=== PATIENT | female | born 1945 | race Caucasian/White ===

== ENCOUNTER 2017-12-28 12:42 | Emergency (ER) | payer MEDICARE, OTHER ==
[~2017-12-28] VITALS: Ht 160 cm; Wt 137.3 kg
[~2017-12-28 12:42] MED LIST: ALBU18HF2 INH; BUPR150T6 PO; BUPR75TA11 PO; CIPR-230 PO; CITA10TA9 PO; DOCU100C41 PO; ENOX30SY10 SUBCUT; ENOX40SY7 SQ; FAMO40TA PO; HYDR-3972 PO; HYDR-565 PO; LEVO112T5 PO; MAGN400C PO; MULT-1133 PO; PHEN-557 PO; POLY17PO10 PO; PREG75CA30 PO; VALS80TA2 PO; VITA200C68 PO; VITC500T PO; WARF10TA50 PO; [UNRECOGNIZED DRUG - CODE] PO
[2017-12-28 12:52] VITALS: BP 157/82
[2017-12-28] MEDS ORDERED: HYDR-3972 PO (13:41)
== END 2017-12-28 14:14 | disposition home or self-care (01) ==
LOC: VAS 12:42
DX: G89.29 Other chronic pain (principal); M54.9 Dorsalgia, unspecified; Z76.0 Encounter for issue of repeat prescription; I12.9 Hypertensive chronic kidney disease with stage 1 through stage 4 chronic kidney disease, or unspecified chronic kidney disease; E11.22 Type 2 diabetes mellitus with diabetic chronic kidney disease; N18.9 Chronic kidney disease, unspecified; E78.00 Pure hypercholesterolemia, unspecified; J44.9 Chronic obstructive pulmonary disease, unspecified; K21.9 Gastro-esophageal reflux disease without esophagitis; E05.90 Thyrotoxicosis, unspecified without thyrotoxic crisis or storm; Z86.718 Personal history of other venous thrombosis and embolism; Z90.710 Acquired absence of both cervix and uterus; Z98.51 Tubal ligation status; Z88.8 Allergy status to other drugs, medicaments and biological substances
CPT/HCPCS: 99283

== ENCOUNTER 2018-01-07 12:58 | Emergency (ER) | payer MEDICARE, MEDICAID ==
[~2018-01-07] VITALS: Ht 157.5 cm; Wt 137.3 kg
[2018-01-07 13:01] VITALS: BP 165/72
[2018-01-07] MEDS ORDERED: HYDROcodone/acetaminophen 10/325mg tab PO ONE (13:40)
== END 2018-01-07 14:07 | disposition home or self-care (01) ==
LOC: ER 12:58
DX: G89.29 Other chronic pain (principal); M54.5 Low back pain; E78.00 Pure hypercholesterolemia, unspecified; J44.9 Chronic obstructive pulmonary disease, unspecified; K21.9 Gastro-esophageal reflux disease without esophagitis; E11.22 Type 2 diabetes mellitus with diabetic chronic kidney disease; I12.9 Hypertensive chronic kidney disease with stage 1 through stage 4 chronic kidney disease, or unspecified chronic kidney disease; N18.9 Chronic kidney disease, unspecified; E05.90 Thyrotoxicosis, unspecified without thyrotoxic crisis or storm; Z79.01 Long term (current) use of anticoagulants; Z88.8 Allergy status to other drugs, medicaments and biological substances; Z90.710 Acquired absence of both cervix and uterus; Z90.89 Acquired absence of other organs; Z98.51 Tubal ligation status
CPT/HCPCS: 99284

== ENCOUNTER 2018-02-11 13:49 | Emergency (ER) | payer MEDICARE, MEDICAID ==
[~2018-02-11] VITALS: Ht 160 cm; Wt 137.3 kg
[~2018-02-11 13:49] MED LIST changes: +HYDR-4353 PO; -HYDR-565 PO
[2018-02-11] MEDS ORDERED: acetaminophen 325mg tablet PO ONE (15:10)
[2018-02-11] MEDS ORDERED: orphenadrine citrate 60mg/2ml inj. IM ONE (15:10)
[2018-02-11 15:44] LABS: BASOPHILS % (AUTO) 0.8 % (0-1); EOSINOPHILS # (AUTO) 0.2 X10'3 (0-0.9); EOSINOPHILS % (AUTO) 3.3 % (0-6); HEMATOCRIT 39.6 % (35.0-45.0); HEMOGLOBIN 13.3 g/dl (12.0-16.0); LYMPHOCYTES # (AUTO) 1.6 X10'3 (1.1-4.8); LYMPHOCYTES % (AUTO) 33.7 % (21-51); MEAN CORPUSCULAR HEMOGLOBIN 33.4 PG (27.0-31.0); MEAN CORPUSCULAR HGB CONC 33.6 % (33.0-36.5); MEAN CORPUSCULAR VOLUME 99.4 FL (78-98); MEAN PLATELET VOLUME 8.1 FL (7.4-10.4); MONOCYTES # (AUTO) 0.6 X10'3 (0-0.9); MONOCYTES % (AUTO) 12.2 % (2-12); NEUTROPHILS # (AUTO) 2.4 X10'3 (1.8-7.7); PLATELET COUNT 200 X10'3 (140-440); RED BLOOD COUNT 3.99 X10'6 (4.20-5.60); RED CELL DISTRIBUTION WIDTH 15.5 % (11.5-14.5); WHITE BLOOD COUNT 4.7 X10'3 (4.5-11.0)
[2018-02-11 15:52] LABS: CLARITY,URINE SLIGHTLY CLOUDY (Clear); COLOR,URINE YELLOW (Yellow); GLUCOSE, URINE NEGATIVE (Neg); KETONES,URINE NEGATIVE (Neg); LEUKOCYTE ESTERASE ,URINE SMALL (Neg); NITRITES, URINE POSITIVE (Neg); OCCULT BLOOD,URINE NEGATIVE (Neg); PROTEIN,URINE NEGATIVE (Neg); UROBILINOGEN,URINE 0.2 E.U/dL (0.2-1.0)
[2018-02-11 15:53] LABS: UA COLLECTION TYPE CLN CATCH MIDSTREAM
[2018-02-11 16:00] LABS: BACTERIA,URINE 4+ /HPF (Neg); RBC,URINE NONE SEEN /HPF (0-2); SQUAMOUS EPITHELIAL CELL,UR FEW /LPF (FEW); WBC,URINE 50-100 /HPF (0-4)
[2018-02-11 16:00] LABS: ALANINE AMINOTRANSFERASE 32 U/L (12-78); ALBUMIN 3.4 G/DL (3.4-5.0); ALBUMIN/GLOBULIN RATIO 0.8 (1.1-1.5); ALKALINE PHOSPHATASE 138 IU/L (46-116); ANION GAP 9 (8-16); ASPARTATE AMINO TRANSFERASE 22 U/L (10-37); BILIRUBIN,TOTAL 0.2 MG/DL (0.1-1.0); BLOOD UREA NITROGEN 23 MG/DL (7-18); BUN/CREATININE RATIO 17.7 (6.6-38.0); CALCIUM 9.1 MG/DL (8.5-10.1); CHLORIDE 105 MMOL/L (99-107); GLUCOSE 88 MG/DL (70-104); SODIUM 140 MMOL/L (135-145); TOTAL CARBON DIOXIDE 26.5 MMOL/L (24-32); TOTAL PROTEIN 7.8 G/DL (6.4-8.2); eGFR 40 ML/MIN
[2018-02-11 16:01] LABS: WBC CLUMPS,URINE FEW /HPF (NEGATIVE)
[2018-02-11 16:03] LABS: INR 1.6 INR; PROTHROMBIN TIME 16.5 SECONDS (9.0-12.0)
[2018-02-11 17:08] VITALS: BP 155/75
== END 2018-02-11 17:09 | disposition home or self-care (01) ==
LOC: ER 13:49
DX: S29.012A Strain of muscle and tendon of back wall of thorax, initial encounter (principal); M54.5 Low back pain; J45.909 Unspecified asthma, uncomplicated; J44.9 Chronic obstructive pulmonary disease, unspecified; I12.9 Hypertensive chronic kidney disease with stage 1 through stage 4 chronic kidney disease, or unspecified chronic kidney disease; E11.22 Type 2 diabetes mellitus with diabetic chronic kidney disease; N18.9 Chronic kidney disease, unspecified; F41.9 Anxiety disorder, unspecified; F32.9 Major depressive disorder, single episode, unspecified; G89.29 Other chronic pain; K21.9 Gastro-esophageal reflux disease without esophagitis; Z88.8 Allergy status to other drugs, medicaments and biological substances; Z86.718 Personal history of other venous thrombosis and embolism; Z90.710 Acquired absence of both cervix and uterus; Z88.6 Allergy status to analgesic agent; Z79.899 Other long term (current) drug therapy; Z79.01 Long term (current) use of anticoagulants; E78.00 Pure hypercholesterolemia, unspecified; W01.0XXA Fall on same level from slipping, tripping and stumbling without subsequent striking against object, initial encounter; Y93.89 Activity, other specified; Y92.89 Other specified places as the place of occurrence of the external cause; Y99.8 Other external cause status
CPT/HCPCS: 36415; 74176; 80053; 81001; 85025; 85610; 87077; 87088; 87186; 96372; 99285; J2360

== ENCOUNTER 2018-07-18 12:35 | Inpatient (IN) | payer MEDICARE, MEDICAID ==
[~2018-07-18] VITALS: Ht 160 cm; Wt 143.0 kg
[2018-07-18] MEDS ORDERED: normal saline 1000ML IV soln IVB ONE (12:50)
[2018-07-18] MEDS ORDERED: LORazepam 2 mg/ml vial IV ONE (13:00)
[2018-07-18 13:23] LABS: BASOPHILS # (AUTO) 0.1 X10'3 (0-0.2); BASOPHILS % (AUTO) 0.8 % (0-1); EOSINOPHILS % (AUTO) 0.1 % (0-6); HEMATOCRIT 34.6 % (35.0-45.0); HEMOGLOBIN 11.5 g/dl (12.0-16.0); LYMPHOCYTES # (AUTO) 0.6 X10'3 (1.1-4.8); MEAN CORPUSCULAR HEMOGLOBIN 33.2 PG (27.0-31.0); MEAN CORPUSCULAR HGB CONC 33.1 g/dL (33.0-36.5); MEAN CORPUSCULAR VOLUME 100.2 FL (78-98); MONOCYTES # (AUTO) 0.8 X10'3 (0-0.9); MONOCYTES % (AUTO) 7.2 % (2-12); NEUTROPHILS # (AUTO) 9.9 X10'3 (1.8-7.7); NEUTROPHILS % (AUTO) 86.9 % (42-75); PLATELET COUNT 147 X10'3 (140-440); RED BLOOD COUNT 3.45 X10'6 (4.20-5.60); RED CELL DISTRIBUTION WIDTH 14.7 % (11.5-14.5); WHITE BLOOD COUNT 11.4 X10'3 (4.5-11.0)
[2018-07-18 13:39] LABS: ALANINE AMINOTRANSFERASE 35 U/L (12-78); ALBUMIN/GLOBULIN RATIO 0.6 (1.1-1.5); ALKALINE PHOSPHATASE 101 IU/L (46-116); ANION GAP 9 (8-16); ASPARTATE AMINO TRANSFERASE 30 U/L (10-37); BILIRUBIN,TOTAL 0.3 MG/DL (0.1-1.0); BLOOD UREA NITROGEN 32 MG/DL (7-18); BUN/CREATININE RATIO 22.4 (6.6-38.0); CALCIUM 8.3 MG/DL (8.5-10.1); CHLORIDE 106 MMOL/L (99-107); CREATININE 1.43 MG/DL (0.40-0.90); GLUCOSE 100 MG/DL (70-104); MAGNESIUM 1.6 MG/DL (1.5-2.4); POTASSIUM 5.3 MMOL/L (3.5-5.1); SODIUM 141 MMOL/L (135-145); TOTAL CARBON DIOXIDE 26.4 MMOL/L (24-32); TOTAL PROTEIN 7.7 G/DL (6.4-8.2); eGFR 36 ML/MIN
--- NOTE | 2018-07-18 13:49 | NUR ---
1ST LITER NS INFUSING W/O
[2018-07-18 13:53] LABS: INR 3.3 INR; PARTIAL THROMBOPLASTIN TIME 46 SECONDS (22-32)
--- NOTE | 2018-07-18 14:03 | NUR ---
IN AND OUT CATH DONE WITH STERILE TECHNIQUE, PT IS ABLE TO ROLL SIDE TO SIDE WITH MIN ASSIST, PT IS WEARING DEPENDS AND INCONTINENT OF URINE AT TIMES, 800ML OF DARK YELLOW URINE OUT, SAMPLE SENT TO LAB
--- NOTE | 2018-07-18 14:09 | NUR ---
DR CAAL AWARE OF TEMP 104.0, GAVE VERBAL ORDER FOR TYLENON 650MG PO X1 NOW
[2018-07-18] MEDS ORDERED: acetaminophen 325mg tablet PO ONE (14:10)
--- NOTE | 2018-07-18 14:10 | NUR ---
PT MOVED TO ROOM 5
[2018-07-18 14:23] LABS: COLOR,URINE STRAW (Yellow); GLUCOSE, URINE NEGATIVE (Neg); KETONES,URINE NEGATIVE (Neg); LEUKOCYTE ESTERASE ,URINE NEGATIVE (Neg); NITRITES, URINE POSITIVE (Neg); OCCULT BLOOD,URINE TRACE-LYSED (Neg); PROTEIN,URINE NEGATIVE (Neg); UROBILINOGEN,URINE 0.2 E.U/dL (0.2-1.0)
[2018-07-18 14:24] LABS: CLARITY,URINE SLIGHTLY CLOUDY (Clear); UA COLLECTION TYPE FOLEY CATH
[2018-07-18 14:28] LABS: BACTERIA,URINE 4+ /HPF (Neg); MUCUS STRANDS NONE SEEN /LPF (Neg); SQUAMOUS EPITHELIAL CELL,UR FEW /LPF (FEW); WBC CLUMPS,URINE FEW /HPF (NEGATIVE)
[2018-07-18] MEDS ORDERED: CefTRIAXone/D5W-Rocephin 1gm 50 ML IV ONE (14:40)
[2018-07-18] MEDS ORDERED: HYDROmorphone 1 mg/ml syringe IV ONE (14:45)
[2018-07-18] MEDS ORDERED: PRIM50TA42 PO ×2 (16:09→16:12)
[2018-07-18] MEDS ORDERED: LEVO137T2 PO (16:09)
[2018-07-18] MEDS ORDERED: magnesium 4gm in 100ml NS 100 ML IV PRN (16:10)
[2018-07-18] MEDS ORDERED: magnesium 2GM in 50ml NS 50 ML IV PRN (16:10)
[2018-07-18] MEDS ORDERED: docusate sod 100mg capsule PO PRN (16:10)
[2018-07-18] MEDS ORDERED: HYDROcodone/acetaminophen 5mg/325mg tablet PO PRN (16:10)
[2018-07-18] MEDS ORDERED: acetaminophen 325mg tablet PO PRN (16:10)
[2018-07-18] MEDS ORDERED: potassium Cl 20 mEq SR tablet PO PRN ×2 (16:10)
[2018-07-18] MEDS ORDERED: ondansetron/PF 4mg/2ml inj IV PRN (16:10)
[2018-07-18] MEDS ORDERED: magnesium Cl slow-release 64mg tablet PO PRN (16:10)
[2018-07-18] MEDS ORDERED: potassium Cl 40MEQ/NS 500ml 500 ML IV PRN ×2 (16:10)
[2018-07-18] MEDS ORDERED: morphine 4 MG/ML inj SYRINge IV PRN (16:10)
[2018-07-18] MEDS ORDERED: WARF10TA50 PO (16:11)
[2018-07-18] MEDS ORDERED: MIRA50TA PO (16:11)
[2018-07-18] MEDS ORDERED: POTA10TA15 PO (16:16)
[2018-07-18] MEDS ORDERED: CYAN-19 PO (16:16)
[2018-07-18] MEDS ORDERED: FURO-150 PO (16:16)
[2018-07-18] MEDS ORDERED: [UNRECOGNIZED DRUG - OTHER] BOTHNARES (16:16)
[2018-07-18] MEDS ORDERED: FISH12002 PO (16:16)
[2018-07-18] MEDS: normal saline 1000ml 1,000 ML IV SCH (17:08)
[2018-07-18] MEDS: HYDROcodone/acetaminophen 10/325mg tab PO PRN (18:01)
[2018-07-18] MEDS ORDERED: non-formulary drug (Albuterol Sulfate (Ventolin Hfa) 2 PUFFS) INH PRN (19:15)
[2018-07-18] MEDS ORDERED: albuterol 2.5 MG/3 ML nebule NEB PRN (19:20)
--- NOTE | 2018-07-18 19:44 | NUR ---
PT PLACED ON HOSPITAL BED FOR COMFORT
[2018-07-18] MEDS: heparin, porcine 5000 units/ml vial SQ SCH (20:28)
[2018-07-18] MEDS: albuterol 2.5 MG/3 ML nebule NEB SCH ×2 (20:37→23:43)
[2018-07-18] MEDS: primidone 50mg tablet PO SCH (20:43)
[2018-07-18] MEDS ORDERED: [UNRECOGNIZED DRUG - OTHER] BOTHNARES SCH (21:00)
[2018-07-18] MEDS: desmopressin 0.1mg/ml nasal spray 5ml btl NS SCH (21:00)
[2018-07-18] MEDS ORDERED: buPROPion 75mg tablet PO SCH (21:00)
[2018-07-18] MEDS: buPROPion 75mg tablet PO SCH (21:22)
--- NOTE | 2018-07-18 22:24 | NUR ---
PT PLACED ON BED WELCH.
[2018-07-18] MEDS: acetaminophen 325mg tablet PO PRN (22:47)
--- NOTE | 2018-07-18 22:53 | NUR ---
PT TAKEN OFF BEDPAN, APPROX 100 CC URINE OUTPUT
--- NOTE | 2018-07-18 23:37 | NUR ---
PT APPEARS TO BE SLEEPING, IN NO ACUTE DISTRESS. FAMILY MEMBER AT THE BEDSIDE.
--- NOTE | 2018-07-19 00:17 | NUR ---
PT DAUGHTER WOULD LIKE TO BE CALLED TO LET HER KNOW WHERE SHE IS MOVED TO WHEN SHE GETS A BED, HER PHONE NUMBER IS : [phone]
--- NOTE | 2018-07-19 00:18 | NUR ---
PT LIFTED UP IN BED, APPEARS IN NO DISTRESS.
[2018-07-19] MEDS: albuterol 2.5 MG/3 ML nebule NEB SCH ×7 (02:54→23:31)
[2018-07-19] MEDS: HYDROcodone/acetaminophen 10/325mg tab PO PRN ×2 (04:57→20:29)
[2018-07-19] MEDS: levoTHYROXINE 112mcg tablet PO SCH (07:43)
[2018-07-19] MEDS: furosemide 20MG tablet PO SCH (07:43)
[2018-07-19] MEDS: buPROPion 75mg tablet PO SCH ×3 (07:43→20:30)
[2018-07-19] MEDS: primidone 50mg tablet PO SCH ×2 (07:43→21:36)
[2018-07-19] MEDS: levoTHYROXINE 25mcg tablet PO SCH (07:43)
[2018-07-19] MEDS: CefTRIAXone 2gm/D5W 50ml 50 ML IV SCH (07:44)
[2018-07-19] MEDS: normal saline 1000ml 1,000 ML IV SCH ×3 (07:52→22:13)
[2018-07-19] MEDS ORDERED: buproprion 150mg XL (24-hour) tablet PO SCH (08:00)
[2018-07-19] MEDS ORDERED: non-formulary drug (Levothyroxine Sodium 1 TAB) PO SCH (08:00)
[2018-07-19] MEDS: K and/or MAG REPLACEMENT MC SCH (08:00)
[2018-07-19] MEDS ORDERED: non-formulary drug (Valsartan* (Diovan*) 1 TAB) PO SCH (08:00)
[2018-07-19] MEDS: heparin, porcine 5000 units/ml vial SQ SCH (08:25)
[2018-07-19] MEDS: losartan 50mg tablet PO SCH (08:25)
[2018-07-19 08:44] LABS: BASOPHILS % (AUTO) 0.2 % (0-1); EOSINOPHILS % (AUTO) 0 % (0-6); HEMATOCRIT 32.1 % (35.0-45.0); HEMOGLOBIN 10.7 g/dl (12.0-16.0); LYMPHOCYTES # (AUTO) 1.1 X10'3 (1.1-4.8); LYMPHOCYTES % (AUTO) 7.1 % (21-51); MEAN CORPUSCULAR HEMOGLOBIN 33.5 PG (27.0-31.0); MEAN CORPUSCULAR HGB CONC 33.4 g/dL (33.0-36.5); MEAN CORPUSCULAR VOLUME 100.5 FL (78-98); MEAN PLATELET VOLUME 8.4 FL (7.4-10.4); MONOCYTES # (AUTO) 0.9 X10'3 (0-0.9); MONOCYTES % (AUTO) 6.3 % (2-12); NEUTROPHILS # (AUTO) 12.9 X10'3 (1.8-7.7); NEUTROPHILS % (AUTO) 86.4 % (42-75); PLATELET COUNT 126 X10'3 (140-440); WHITE BLOOD COUNT 14.9 X10'3 (4.5-11.0)
[2018-07-19 08:58] LABS: ALBUMIN 2.5 G/DL (3.4-5.0); ANION GAP 9 (8-16); BLOOD UREA NITROGEN 24 MG/DL (7-18); BUN/CREATININE RATIO 16.3 (6.6-38.0); CALCIUM 8.2 MG/DL (8.5-10.1); CHLORIDE 106 MMOL/L (99-107); CREATININE 1.47 MG/DL (0.40-0.90); GLUCOSE 94 MG/DL (70-104); MAGNESIUM 1.6 MG/DL (1.5-2.4); POTASSIUM 4.6 MMOL/L (3.5-5.1); SODIUM 138 MMOL/L (135-145); TOTAL CARBON DIOXIDE 22.6 MMOL/L (24-32); eGFR 35 ML/MIN
[2018-07-19 09:07] LABS: INR 3.9 INR
--- NOTE | 2018-07-19 09:43 | NUR ---
HAVE ASSISTED PT WITH BEDPAN FOR URINATING 3 TIMES SINCE SHIFT CHANGE. PT ABLE TO HELP WITH ROLLING SIDE TO SIDE. PT PROPED ON HER RIGHT SIDE FOR SOME SLIGHT REDNESS TO HER BUTT.
--- NOTE | 2018-07-19 10:15 | NUR ---
PT SLEEPING IN NO DISTRESS.
--- NOTE | 2018-07-19 11:47 | NUR ---
PT'S DAUGHTER IS HERE (TIERA) AND ANOTHER KERMIT. PT SLEEPING. NO FEVER.
--- NOTE | 2018-07-19 14:36 | NUR ---
pt has been helped on and off of the bedpan two more times. family member at bedside.
--- NOTE | 2018-07-19 15:45 | NUR ---
CALLED MD HUYNH AND ASKED IF WE COULD PUT A PURWICK ON THE PT FOR HER URINARY ISSUES. SINCE SHE IS VOIDING OFTEN AND SHE CAN'T GET UP TO USE A BEDSIDE COMMODE. SHE SAYS THIS IS FINE BUT SHE DOESN'T WANT ANY FORM OF CATHETER IN HER. INFORMED THE MD THIS IS NOT A CATHETER AND WE WILL NOT PUT A CATHETER IN THE PT.
--- NOTE | 2018-07-19 17:30 | NUR ---
Report received from ED RN, Louise
--- NOTE | 2018-07-19 17:50 | NUR ---
Pt arrived to room 354C from ED.
[2018-07-19 17:55] VITALS: BP 140/64
[2018-07-19 18:00] VITALS: BP 167/67
--- NOTE | 2018-07-19 18:30 | NUR ---
Problems reprioritized. Patient report given, questions answered & plan of care reviewed with MASSIEL Gray.
[2018-07-19] MEDS: acetaminophen 325mg tablet PO PRN (20:30)
[2018-07-19 20:35] VITALS: BP 160/52
[2018-07-19] MEDS: desmopressin 0.1mg/ml nasal spray 5ml btl NS SCH (21:00)
[2018-07-19] MEDS ORDERED: warfarin 10mg tablet PO SCH (21:00)
[2018-07-19] MEDS: primidone 250mg tablet PO SCH (22:12)
[2018-07-20] VITALS: BP 110/46
[2018-07-20] MEDS: albuterol 2.5 MG/3 ML nebule NEB SCH ×6 (02:56→23:42)
--- NOTE | 2018-07-20 06:10 | NUR ---
Patient in room FAIZA 354. I have received report from MASSIEL Gray and had the opportunity to ask questions and assume patient care.
[2018-07-20 06:18] LABS: BASOPHILS % (AUTO) 0.2 % (0-1); EOSINOPHILS % (AUTO) 0.3 % (0-6); HEMATOCRIT 28.6 % (35.0-45.0); HEMOGLOBIN 9.8 g/dl (12.0-16.0); LYMPHOCYTES # (AUTO) 1.1 X10'3 (1.1-4.8); LYMPHOCYTES % (AUTO) 7.6 % (21-51); MEAN CORPUSCULAR HEMOGLOBIN 34.4 PG (27.0-31.0); MEAN CORPUSCULAR HGB CONC 34.2 g/dL (33.0-36.5); MEAN CORPUSCULAR VOLUME 100.8 FL (78-98); MEAN PLATELET VOLUME 8.4 FL (7.4-10.4); MONOCYTES # (AUTO) 1.1 X10'3 (0-0.9); MONOCYTES % (AUTO) 8.1 % (2-12); NEUTROPHILS # (AUTO) 11.8 X10'3 (1.8-7.7); NEUTROPHILS % (AUTO) 83.8 % (42-75); PLATELET COUNT 110 X10'3 (140-440); RED BLOOD COUNT 2.84 X10'6 (4.20-5.60); RED CELL DISTRIBUTION WIDTH 14.8 % (11.5-14.5); WHITE BLOOD COUNT 14.1 X10'3 (4.5-11.0)
[2018-07-20 06:30] LABS: ALBUMIN 2.2 G/DL (3.4-5.0); ANION GAP 8 (8-16); BLOOD UREA NITROGEN 25 MG/DL (7-18); BUN/CREATININE RATIO 17.4 (6.6-38.0); CALCIUM 7.7 MG/DL (8.5-10.1); CHLORIDE 107 MMOL/L (99-107); CREATININE 1.44 MG/DL (0.40-0.90); GLUCOSE 98 MG/DL (70-104); MAGNESIUM 1.7 MG/DL (1.5-2.4); SODIUM 140 MMOL/L (135-145); TOTAL CARBON DIOXIDE 25.2 MMOL/L (24-32); eGFR 36 ML/MIN
[2018-07-20 06:35] LABS: INR 2.2 INR
[2018-07-20] MEDS: K and/or MAG REPLACEMENT MC SCH (06:47)
--- NOTE | 2018-07-20 06:50 | NUR ---
Problems reprioritized. Patient report given, questions answered & plan of care reviewed with Eliezer RN.
[2018-07-20 07:00] VITALS: BP 124/51
[2018-07-20] MEDS: levoTHYROXINE 25mcg tablet PO SCH (07:32)
[2018-07-20] MEDS: levoTHYROXINE 112mcg tablet PO SCH (07:32)
[2018-07-20] MEDS: CefTRIAXone 2gm/D5W 50ml 50 ML IV SCH (07:32)
[2018-07-20] MEDS: primidone 50mg tablet PO SCH ×2 (07:33→20:24)
[2018-07-20] MEDS: primidone 250mg tablet PO SCH ×2 (07:34→20:24)
[2018-07-20] MEDS: buPROPion 75mg tablet PO SCH ×3 (07:34→20:23)
[2018-07-20] MEDS: furosemide 20MG tablet PO SCH (07:34)
[2018-07-20] MEDS: losartan 50mg tablet PO SCH (07:35)
[2018-07-20] MEDS: HYDROcodone/acetaminophen 10/325mg tab PO PRN ×3 (09:12→23:53)
[2018-07-20 11:00] VITALS: BP 102/53
[2018-07-20] MEDS: normal saline 1000ml 1,000 ML IV SCH (15:10)
[2018-07-20 18:00] VITALS: BP 129/57
--- NOTE | 2018-07-20 18:00 | NUR ---
Problems reprioritized. Patient report given, questions answered & plan of care reviewed with MASSIEL Matos.
--- NOTE | 2018-07-20 18:01 | NUR ---
Patient in room FAIZA 354. I have received report from MASSIEL Paulino and had the opportunity to ask questions and assume patient care.
[2018-07-20] MEDS: desmopressin 0.1mg/ml nasal spray 5ml btl NS SCH (20:25)
[2018-07-20] MEDS ORDERED: warfarin 3mg tablet PO ONE (21:00)
[2018-07-21] VITALS: BP 158/59
[2018-07-21] MEDS: albuterol 2.5 MG/3 ML nebule NEB SCH ×6 (03:13→23:44)
[2018-07-21 06:17] LABS: BASOPHILS % (AUTO) 0.2 % (0-1); EOSINOPHILS # (AUTO) 0.1 X10'3 (0-0.9); EOSINOPHILS % (AUTO) 1.4 % (0-6); HEMATOCRIT 29.5 % (35.0-45.0); LYMPHOCYTES # (AUTO) 1.4 X10'3 (1.1-4.8); LYMPHOCYTES % (AUTO) 15.1 % (21-51); MEAN CORPUSCULAR HEMOGLOBIN 34.2 PG (27.0-31.0); MEAN CORPUSCULAR VOLUME 100.6 FL (78-98); MEAN PLATELET VOLUME 8.5 FL (7.4-10.4); MONOCYTES # (AUTO) 0.9 X10'3 (0-0.9); MONOCYTES % (AUTO) 10.1 % (2-12); NEUTROPHILS # (AUTO) 6.9 X10'3 (1.8-7.7); NEUTROPHILS % (AUTO) 73.2 % (42-75); PLATELET COUNT 113 X10'3 (140-440); RED BLOOD COUNT 2.93 X10'6 (4.20-5.60); RED CELL DISTRIBUTION WIDTH 14.6 % (11.5-14.5); WHITE BLOOD COUNT 9.4 X10'3 (4.5-11.0)
[2018-07-21 06:24] LABS: ALBUMIN 2.2 G/DL (3.4-5.0); ANION GAP 7 (8-16); BLOOD UREA NITROGEN 21 MG/DL (7-18); BUN/CREATININE RATIO 18.1 (6.6-38.0); CALCIUM 8.1 MG/DL (8.5-10.1); CHLORIDE 107 MMOL/L (99-107); CREATININE 1.16 MG/DL (0.40-0.90); GLUCOSE 95 MG/DL (70-104); MAGNESIUM 1.7 MG/DL (1.5-2.4); POTASSIUM 4.2 MMOL/L (3.5-5.1); SODIUM 138 MMOL/L (135-145); TOTAL CARBON DIOXIDE 23.7 MMOL/L (24-32); eGFR 46 ML/MIN
--- NOTE | 2018-07-21 06:30 | NUR ---
Patient in room FAIZA 354. I have received report from Sabrina RANKIN and had the opportunity to ask questions and assume patient care.
[2018-07-21 06:39] LABS: INR 1.3 INR
--- NOTE | 2018-07-21 06:50 | NUR ---
Problems reprioritized. Patient report given, questions answered & plan of care reviewed with MASSIEL Bennett.
[2018-07-21] MEDS: levoTHYROXINE 25mcg tablet PO SCH (07:03)
[2018-07-21] MEDS: levoTHYROXINE 112mcg tablet PO SCH (07:05)
[2018-07-21 07:11] VITALS: BP 119/71
[2018-07-21 08:00] VITALS: BP_SYST 114; BP_SYST 119; BP_DIAS 58; BP_DIAS 71
[2018-07-21] MEDS: K and/or MAG REPLACEMENT MC SCH (08:00)
[2018-07-21] MEDS: HYDROcodone/acetaminophen 10/325mg tab PO PRN ×3 (08:24→23:20)
[2018-07-21] MEDS: CefTRIAXone 2gm/D5W 50ml 50 ML IV SCH (08:35)
[2018-07-21] MEDS: losartan 50mg tablet PO SCH (08:54)
[2018-07-21] MEDS: furosemide 20MG tablet PO SCH (08:56)
[2018-07-21] MEDS: primidone 250mg tablet PO SCH ×2 (08:58→21:15)
[2018-07-21] MEDS: buPROPion 75mg tablet PO SCH ×3 (08:59→21:15)
[2018-07-21] MEDS: primidone 50mg tablet PO SCH ×2 (08:59→21:15)
--- NOTE | 2018-07-21 11:40 | NUR ---
Student Medication Administration: For this medication-pass time frame, all medication were reviewed, dispensed, administered and documented per hospital policy by Patrick practical nursing faculty.
--- NOTE | 2018-07-21 11:40 | NUR ---
Student documentation: I have reviewed and agree with all interventions, assessments performed and documented by Patrick, skilled nursing professional.
[2018-07-21 12:00] VITALS: BP 107/54
--- NOTE | 2018-07-21 12:00 | NUR ---
Patient in room FAIZA 354. I have received report from Patrick, student nurse and had the opportunity to ask questions and assume patient care.
--- NOTE | 2018-07-21 12:13 | NUR ---
Problems reprioritized. Patient report given, questions answered & plan of care reviewed with Sabrina RANKIN.
[2018-07-21] MEDS ORDERED: furosemide 40mg/4ml inj IV ONE ×2 (13:05→19:30)
[2018-07-21 14:16] VITALS: BP 144/63
--- NOTE | 2018-07-21 14:29 | NUR ---
Pt c/o intense chest pressure, still sob
--- NOTE | 2018-07-21 14:30 | NUR ---
EKG read by Dr Torres, negative for Stemi. No need for troponins per Dr Torres. Echo ordered.
--- NOTE | 2018-07-21 15:55 | NUR ---
Student documentation: I have reviewed and agree with all interventions, assessments performed and documented by Shana student nurse.
[2018-07-21 18:00] VITALS: BP 135/57
--- NOTE | 2018-07-21 18:58 | NUR ---
Problems reprioritized. Patient report given, questions answered & plan of care reviewed with Carlo RANKIN.
--- NOTE | 2018-07-21 18:59 | NUR ---
Patient in room FAIZA 354. I have received report from MASSIEL Bennett and had the opportunity to ask questions and assume patient care.
[2018-07-21] MEDS ORDERED: warfarin 5mg tablet PO ONE (21:00)
[2018-07-21] MEDS: furosemide 40mg/4ml inj IV SCH (21:14)
[2018-07-21] MEDS: nystatin 15 GM powder TP SCH (21:16)
[2018-07-21] MEDS: desmopressin 0.1mg/ml nasal spray 5ml btl NS SCH (21:16)
[2018-07-22] VITALS: BP 114/48
[2018-07-22] MEDS: albuterol 2.5 MG/3 ML nebule NEB SCH ×3 (03:41→11:13)
[2018-07-22] MEDS: HYDROcodone/acetaminophen 10/325mg tab PO PRN (05:19)
[2018-07-22 05:57] LABS: BASOPHILS % (AUTO) 0.3 % (0-1); EOSINOPHILS # (AUTO) 0.2 X10'3 (0-0.9); HEMATOCRIT 29.5 % (35.0-45.0); HEMOGLOBIN 10.1 g/dl (12.0-16.0); LYMPHOCYTES # (AUTO) 1.3 X10'3 (1.1-4.8); LYMPHOCYTES % (AUTO) 15.1 % (21-51); MEAN CORPUSCULAR HEMOGLOBIN 34.2 PG (27.0-31.0); MEAN CORPUSCULAR HGB CONC 34.2 g/dL (33.0-36.5); MEAN CORPUSCULAR VOLUME 100.2 FL (78-98); MEAN PLATELET VOLUME 8.6 FL (7.4-10.4); MONOCYTES % (AUTO) 11.7 % (2-12); NEUTROPHILS # (AUTO) 6.1 X10'3 (1.8-7.7); NEUTROPHILS % (AUTO) 70.9 % (42-75); PLATELET COUNT 132 X10'3 (140-440); RED BLOOD COUNT 2.94 X10'6 (4.20-5.60); WHITE BLOOD COUNT 8.6 X10'3 (4.5-11.0)
[2018-07-22 06:05] LABS: ALBUMIN 2.1 G/DL (3.4-5.0); ANION GAP 9 (8-16); BLOOD UREA NITROGEN 20 MG/DL (7-18); BUN/CREATININE RATIO 16.9 (6.6-38.0); CALCIUM 8.1 MG/DL (8.5-10.1); CHLORIDE 103 MMOL/L (99-107); CREATININE 1.18 MG/DL (0.40-0.90); GLUCOSE 94 MG/DL (70-104); MAGNESIUM 1.4 MG/DL (1.5-2.4); SODIUM 137 MMOL/L (135-145); TOTAL CARBON DIOXIDE 25.5 MMOL/L (24-32); eGFR 45 ML/MIN
[2018-07-22 06:13] LABS: INR 1.1 INR
--- NOTE | 2018-07-22 06:39 | NUR ---
Problems reprioritized. Patient report given, questions answered & plan of care reviewed with MASSIEL Bennett.
--- NOTE | 2018-07-22 06:47 | NUR ---
Patient in room FAIZA 354. I have received report from Sabrina RANKIN and had the opportunity to ask questions and assume patient care.
[2018-07-22] MEDS: levoTHYROXINE 25mcg tablet PO SCH (07:10)
[2018-07-22] MEDS: levoTHYROXINE 112mcg tablet PO SCH (07:10)
[2018-07-22] MEDS: furosemide 40mg/4ml inj IV SCH (07:44)
[2018-07-22] MEDS: CefTRIAXone 2gm/D5W 50ml 50 ML IV SCH (07:46)
[2018-07-22] MEDS: losartan 50mg tablet PO SCH (07:52)
[2018-07-22] MEDS: primidone 250mg tablet PO SCH (07:53)
[2018-07-22] MEDS: primidone 50mg tablet PO SCH (07:55)
[2018-07-22 08:00] VITALS: BP 120/63
[2018-07-22] MEDS: nystatin 15 GM powder TP SCH ×2 (08:00→13:00)
[2018-07-22] MEDS: K and/or MAG REPLACEMENT MC SCH (08:00)
[2018-07-22] MEDS: buPROPion 75mg tablet PO SCH ×2 (08:00→12:58)
--- NOTE | 2018-07-22 09:01 | NUR ---
During morning med pass I scanned bupropion and nystatin powder but it did not save so I had to do a manual entry later.
--- NOTE | 2018-07-22 11:07 | NUR ---
Student Medication Administration: For this medication-pass time frame, all medication were reviewed, dispensed, administered and documented per hospital policy by Patrick nursing unit coordinator.
--- NOTE | 2018-07-22 11:07 | NUR ---
Student documentation: I have reviewed and agree with all interventions, assessments performed and documented by Patrick, nursing secretary.
[2018-07-22] MEDS ORDERED: magnesium 4gm in 100ml NS 100 ML IV PRN (11:35)
[2018-07-22] MEDS ORDERED: potassium Cl 40MEQ/NS 500ml 500 ML IV PRN ×2 (11:35)
[2018-07-22] MEDS ORDERED: magnesium 2GM in 50ml NS 50 ML IV PRN (11:35)
[2018-07-22] MEDS ORDERED: magnesium Cl slow-release 64mg tablet PO PRN (11:35)
[2018-07-22] MEDS ORDERED: potassium Cl 20 mEq SR tablet PO PRN ×2 (11:35)
[2018-07-22 11:56] VITALS: BP 130/67
--- NOTE | 2018-07-22 11:57 | NUR ---
PT HR 120-130'S. LOOKING BACK AT HR FROM WHEN PT CAME IN THIS IS A CHANGE. IT WAS ORIGINALLY IN THE 80'S. DR JURADO AWARE.
--- NOTE | 2018-07-22 11:59 | NUR ---
LAST NOTE: STATES HR ON ADMIT WAS 80'S BUT LOOKING AGAIN, IT DOES LOOK LIKE SHE WAS IN MID 100'S-115 EARLY ADMIT
[2018-07-22 12:02] VITALS: BP 130/67
--- NOTE | 2018-07-22 12:15 | NUR ---
Patient in room FAIZA 354. I have received report from Patrick, student nurse and had the opportunity to ask questions and assume patient care.
--- NOTE | 2018-07-22 12:16 | NUR ---
Problems reprioritized. Patient report given, questions answered & plan of care reviewed with Sabrina RANKIN.
--- NOTE | 2018-07-22 12:23 | NUR ---
late entry HR 53 on vitals machine, apical pulse was assessed and was 124 BPM Addendum: 07/22/18 at 1225 by Shana JACOBO Amended: Links added.
--- NOTE | 2018-07-22 12:31 | NUR ---
O2 Sat at rest on room air:93% If below 89%: Recovery O2 Sat at rest on ___LPM:___%:___% via (mask/nasal cannula, etc..) No further documentation is necessary. If O2 Sat did not drop below 89% on room air,ambulate patient on room air. O2 Sat while ambulating on room air:_86_% Recovery O2 Sat while ambulating on 1_LPM:93_% No further documentation is necessary. If patient does not drop below 89% while ambulating, he/she does not qualify for home O2.
[2018-07-22 12:45] VITALS: BP 127/60
[2018-07-22 13:41] VITALS: BP 127/60
[2018-07-22] MEDS ORDERED: CEFD300C3 PO (14:11)
--- NOTE | 2018-07-22 15:22 | NUR ---
Student documentation: I have reviewed and agree with all interventions, assessments performed and documented by Donna student nurse.
--- NOTE | 2018-07-22 17:00 | NUR ---
Pt discharged home with daughter. O2 delivered to room for discharge. IV taken out, no tele. All belongings taken from room. Discharge meds delivered to room by bailey. Pt still sob, daughter says this is her baseline. Instructed to come back to ER if there is worsening symptoms. Pt adamant about being discharged, wanted to get home to her bird.
[2018-07-22] MEDS ORDERED: warfarin 7.5mg tablet PO ONE (21:00)
[2018-08-11] MEDS ORDERED: CEPH-572 PO (11:45)
== END 2018-07-22 17:05 | disposition home health service (06) | DRG 191 ==
LOC: ER 12:35 → ED HOLD 16:07 → SUR 3N 07-19 17:52
PROVIDERS: ADMIT Internal Medicine; ATTEND Family Medicine
DX: J44.0 Chronic obstructive pulmonary disease with (acute) lower respiratory infection (principal); N39.0 Urinary tract infection, site not specified; Z68.43 Body mass index [BMI] 50.0-59.9, adult; I13.0 Hypertensive heart and chronic kidney disease with heart failure and stage 1 through stage 4 chronic kidney disease, or unspecified chronic kidney disease; I50.40 Unspecified combined systolic (congestive) and diastolic (congestive) heart failure; G89.4 Chronic pain syndrome; I48.91 Unspecified atrial fibrillation; J20.9 Acute bronchitis, unspecified; F32.9 Major depressive disorder, single episode, unspecified; F41.9 Anxiety disorder, unspecified; M54.9 Dorsalgia, unspecified; N18.3 Chronic kidney disease, stage 3 (moderate); E11.22 Type 2 diabetes mellitus with diabetic chronic kidney disease; B96.20 Unspecified Escherichia coli [E. coli] as the cause of diseases classified elsewhere; E05.90 Thyrotoxicosis, unspecified without thyrotoxic crisis or storm; E78.00 Pure hypercholesterolemia, unspecified; F17.200 Nicotine dependence, unspecified, uncomplicated; R32 Unspecified urinary incontinence; E66.01 Morbid (severe) obesity due to excess calories; G25.0 Essential tremor; K21.9 Gastro-esophageal reflux disease without esophagitis; Z66 Do not resuscitate; Z98.51 Tubal ligation status; Z90.710 Acquired absence of both cervix and uterus; Z88.8 Allergy status to other drugs, medicaments and biological substances; Z79.01 Long term (current) use of anticoagulants; Z86.718 Personal history of other venous thrombosis and embolism
CPT/HCPCS: 36415; 71045; 80048; 80053; 81001; 83605; 83735; 84145; 85025; 85610; 85730; 87040; 87070; 87077; 87088; 87186; 93005; 93306; 94640; 94760; 96365; 96375; 97162; 97530; 99285; G0378; J0696; J1170; J1644; J1940; J2060; J7030

== ENCOUNTER 2018-07-26 17:10 | Emergency (ER) | payer MEDICARE, MEDICAID ==
[~2018-07-26] VITALS: Ht 160 cm; Wt 147.0 kg
[~2018-07-26 17:10] MED LIST changes: +CEFD300C3 PO; -CIPR-230 PO; -CITA10TA9 PO; +CYAN-19 PO; -DOCU100C41 PO; -ENOX30SY10 SUBCUT; -ENOX40SY7 SQ; +FISH12002 PO; +FURO-150 PO; -HYDR-4353 PO; -LEVO112T5 PO; +LEVO137T2 PO; -MAGN400C PO; +MIRA50TA PO; -PHEN-557 PO; -POLY17PO10 PO; +POTA10TA15 PO; -PREG75CA30 PO; +PRIM50TA42 PO; +[UNRECOGNIZED DRUG - OTHER] BOTHNARES
[2018-07-26 17:49] VITALS: BP 140/65
== END 2018-07-26 21:23 | disposition left against medical advice (07) ==
LOC: ER 17:10
DX: L03.115 Cellulitis of right lower limb (principal); I12.9 Hypertensive chronic kidney disease with stage 1 through stage 4 chronic kidney disease, or unspecified chronic kidney disease; E11.22 Type 2 diabetes mellitus with diabetic chronic kidney disease; N18.9 Chronic kidney disease, unspecified; E78.00 Pure hypercholesterolemia, unspecified; J44.9 Chronic obstructive pulmonary disease, unspecified; E05.90 Thyrotoxicosis, unspecified without thyrotoxic crisis or storm; G89.29 Other chronic pain; M54.9 Dorsalgia, unspecified; Z86.718 Personal history of other venous thrombosis and embolism; Z90.710 Acquired absence of both cervix and uterus; Z98.51 Tubal ligation status; Z88.8 Allergy status to other drugs, medicaments and biological substances; Z79.01 Long term (current) use of anticoagulants
CPT/HCPCS: 99283

== ENCOUNTER 2018-09-11 14:10 | Emergency (ER) | payer MEDICARE, MEDICAID ==
[~2018-09-11] VITALS: Ht 160 cm; Wt 141.8 kg
[~2018-09-11 14:10] MED LIST changes: -CEFD300C3 PO
[2018-09-11] MEDS ORDERED: CAPS60CR6 TP (15:49)
[2018-09-11] MEDS ORDERED: [UNRECOGNIZED DRUG - CODE] TOP (15:53)
[2018-09-11 16:19] VITALS: BP 139/100
== END 2018-09-11 16:20 | disposition home or self-care (01) ==
LOC: ER 14:10
DX: S90.01XA Contusion of right ankle, initial encounter (principal); M25.532 Pain in left wrist; E66.9 Obesity, unspecified; E78.00 Pure hypercholesterolemia, unspecified; J44.9 Chronic obstructive pulmonary disease, unspecified; K21.9 Gastro-esophageal reflux disease without esophagitis; E05.80 Other thyrotoxicosis without thyrotoxic crisis or storm; G89.29 Other chronic pain; I12.9 Hypertensive chronic kidney disease with stage 1 through stage 4 chronic kidney disease, or unspecified chronic kidney disease; E11.22 Type 2 diabetes mellitus with diabetic chronic kidney disease; N18.9 Chronic kidney disease, unspecified; Z86.718 Personal history of other venous thrombosis and embolism; Z90.710 Acquired absence of both cervix and uterus; Z98.890 Other specified postprocedural states; Z98.51 Tubal ligation status; Z88.8 Allergy status to other drugs, medicaments and biological substances; Z79.01 Long term (current) use of anticoagulants; Z79.899 Other long term (current) drug therapy; W18.49XA Other slipping, tripping and stumbling without falling, initial encounter; Y93.E8 Activity, other personal hygiene; Y92.091 Bathroom in other non-institutional residence as the place of occurrence of the external cause; Y99.9 Unspecified external cause status
CPT/HCPCS: 29125; 73110; 73610; 99284

== ENCOUNTER 2019-01-19 11:21 | Emergency (ER) | payer MEDICARE, MEDICAID ==
[~2019-01-19] VITALS: Ht 165.1 cm; Wt 145.4 kg
[~2019-01-19 11:21] MED LIST changes: +CAPS60CR6 TP; -CYAN-19 PO; +CYAN100019 PO; +PRIM50TA3 PO; -PRIM50TA42 PO; +[UNRECOGNIZED DRUG - CODE] TOP
[2019-01-19] MEDS ORDERED: nitroGLYCERIN 0.4mg SUBLingual tab SL PRN (11:30)
[2019-01-19] MEDS ORDERED: acetaminophen 325mg tablet PO ONE (11:30)
[2019-01-19] MEDS ORDERED: aspirin 81mg tab.chew PO ONE (11:30)
[2019-01-19] MEDS ORDERED: morphine 4 MG/ML inj SYRINge IV ONE (11:30)
[2019-01-19] MEDS ORDERED: ondansetron/PF 4mg/2ml inj IV ONE (11:30)
[2019-01-19 12:07] LABS: EOSINOPHILS # (AUTO) 0.1 X10'3 (0-0.9); EOSINOPHILS % (AUTO) 2.5 % (0-6); HEMOGLOBIN 12.3 g/dl (12.0-16.0); LYMPHOCYTES # (AUTO) 1.9 X10'3 (1.1-4.8); LYMPHOCYTES % (AUTO) 43.7 % (21-51); MEAN CORPUSCULAR HEMOGLOBIN 34.9 PG (27.0-31.0); MEAN CORPUSCULAR HGB CONC 34.2 g/dL (33.0-36.5); MEAN PLATELET VOLUME 7.8 FL (7.4-10.4); MONOCYTES # (AUTO) 0.5 X10'3 (0-0.9); MONOCYTES % (AUTO) 11.4 % (2-12); NEUTROPHILS # (AUTO) 1.8 X10'3 (1.8-7.7); NEUTROPHILS % (AUTO) 41.4 % (42-75); PLATELET COUNT 165 X10'3 (140-440); RED BLOOD COUNT 3.53 X10'6 (4.20-5.60); RED CELL DISTRIBUTION WIDTH 16.9 % (11.5-14.5); WHITE BLOOD COUNT 4.4 X10'3 (4.5-11.0)
[2019-01-19 12:25] LABS: D-DIMER 0.49 MG/L FEU (0-0.50)
[2019-01-19 12:30] LABS: ALANINE AMINOTRANSFERASE 30 U/L (12-78); ALBUMIN 2.7 G/DL (3.4-5.0); ALBUMIN/GLOBULIN RATIO 0.6 (1.1-1.5); ALKALINE PHOSPHATASE 118 IU/L (46-116); ANION GAP 7 (8-16); ASPARTATE AMINO TRANSFERASE 28 U/L (10-37); BILIRUBIN,TOTAL 0.2 MG/DL (0.1-1.0); BLOOD UREA NITROGEN 26 MG/DL (7-18); BUN/CREATININE RATIO 20.6 (6.6-38.0); CALCIUM 8.2 MG/DL (8.5-10.1); CHLORIDE 103 MMOL/L (99-107); CREATININE 1.26 MG/DL (0.40-0.90); GLUCOSE 106 MG/DL (70-104); POTASSIUM 4.2 MMOL/L (3.5-5.1); SODIUM 139 MMOL/L (135-145); TOTAL CARBON DIOXIDE 29.5 MMOL/L (24-32); TOTAL PROTEIN 7.6 G/DL (6.4-8.2); eGFR 42 ML/MIN
[2019-01-19] MEDS ORDERED: normal saline 1000ml 1,000 ML IV ONE (13:15)
[2019-01-19] MEDS ORDERED: DESM10SP7 BOTHNARES (13:20)
[2019-01-19] MEDS ORDERED: NORT25CA PO (13:24)
[2019-01-19] MEDS ORDERED: METO25TA6 PO (13:24)
[2019-01-19 14:03] VITALS: BP 162/76
== END 2019-01-19 14:20 | disposition home or self-care (01) ==
LOC: ER 11:22
DX: R07.89 Other chest pain (principal); R79.1 Abnormal coagulation profile; E78.00 Pure hypercholesterolemia, unspecified; J44.9 Chronic obstructive pulmonary disease, unspecified; K21.9 Gastro-esophageal reflux disease without esophagitis; I12.9 Hypertensive chronic kidney disease with stage 1 through stage 4 chronic kidney disease, or unspecified chronic kidney disease; N18.9 Chronic kidney disease, unspecified; E11.22 Type 2 diabetes mellitus with diabetic chronic kidney disease; E05.90 Thyrotoxicosis, unspecified without thyrotoxic crisis or storm; G89.29 Other chronic pain; F41.9 Anxiety disorder, unspecified; F32.9 Major depressive disorder, single episode, unspecified; Z90.710 Acquired absence of both cervix and uterus; Z98.51 Tubal ligation status; Z98.890 Other specified postprocedural states; Z86.718 Personal history of other venous thrombosis and embolism; Z88.8 Allergy status to other drugs, medicaments and biological substances; Z79.01 Long term (current) use of anticoagulants; Z79.899 Other long term (current) drug therapy
CPT/HCPCS: 36415; 71045; 80053; 83735; 83880; 84484; 85025; 85379; 85610; 93005; 96374; 96375; 99284; J2270; J2405; J7030

== ENCOUNTER 2019-04-23 14:10 | Emergency (ER) | payer MEDICARE, MEDICAID ==
[~2019-04-23] VITALS: Ht 160 cm; Wt 151.0 kg
[~2019-04-23 14:10] MED LIST changes: -BUPR75TA11 PO; +DESM10SP7 BOTHNARES; +METO25TA6 PO; +NORT25CA PO; -[UNRECOGNIZED DRUG - OTHER] BOTHNARES
[2019-04-23 15:07] LABS: BASOPHILS # (AUTO) 0.1 X10'3 (0-0.2); EOSINOPHILS # (AUTO) 0.1 X10'3 (0-0.9); EOSINOPHILS % (AUTO) 2.3 % (0-6); HEMATOCRIT 36.2 % (35.0-45.0); HEMOGLOBIN 12.3 g/dl (12.0-16.0); LYMPHOCYTES # (AUTO) 1.7 X10'3 (1.1-4.8); LYMPHOCYTES % (AUTO) 29.6 % (21-51); MEAN CORPUSCULAR HEMOGLOBIN 35.6 PG (27.0-31.0); MEAN CORPUSCULAR HGB CONC 33.9 g/dL (33.0-36.5); MEAN CORPUSCULAR VOLUME 104.8 FL (78-98); MEAN PLATELET VOLUME 8.6 FL (7.4-10.4); MONOCYTES # (AUTO) 0.6 X10'3 (0-0.9); MONOCYTES % (AUTO) 10.3 % (2-12); NEUTROPHILS # (AUTO) 3.3 X10'3 (1.8-7.7); NEUTROPHILS % (AUTO) 56.8 % (42-75); PLATELET COUNT 195 X10'3 (140-440); RED BLOOD COUNT 3.46 X10'6 (4.20-5.60); RED CELL DISTRIBUTION WIDTH 16.4 % (11.5-14.5); WHITE BLOOD COUNT 5.8 X10'3 (4.5-11.0)
[2019-04-23 15:19] LABS: ALANINE AMINOTRANSFERASE 30 U/L (12-78); ALBUMIN 3.2 G/DL (3.4-5.0); ALBUMIN/GLOBULIN RATIO 0.6 (1.1-1.5); ALKALINE PHOSPHATASE 137 IU/L (46-116); ANION GAP 5 (8-16); BILIRUBIN,TOTAL 0.4 MG/DL (0.1-1.0); BLOOD UREA NITROGEN 28 MG/DL (7-18); BUN/CREATININE RATIO 17.5 (6.6-38.0); CALCIUM 8.7 MG/DL (8.5-10.1); CHLORIDE 102 MMOL/L (99-107); GLUCOSE 105 MG/DL (70-104); LIPASE 91 U/L (73-393); SODIUM 137 MMOL/L (135-145); TOTAL CARBON DIOXIDE 29.6 MMOL/L (24-32); TOTAL PROTEIN 8.9 G/DL (6.4-8.2); eGFR 32 ML/MIN
[2019-04-23 15:20] LABS: ASPARTATE AMINO TRANSFERASE 33 U/L (10-37)
[2019-04-23] MEDS ORDERED: oxyCODONE/APAP 5-325mg tablet PO ONE (17:35)
[2019-04-23] MEDS ORDERED: ketorolac trometh inj. 60 MG/2 ML VIAL IM ONE (17:45)
[2019-04-23 17:50] LABS: CLARITY,URINE SLIGHTLY CLOUDY (Clear); COLOR,URINE YELLOW (Yellow); GLUCOSE, URINE NEGATIVE (Neg); KETONES,URINE NEGATIVE (Neg); LEUKOCYTE ESTERASE ,URINE SMALL (Neg); NITRITES, URINE NEGATIVE (Neg); OCCULT BLOOD,URINE SMALL (Neg); PROTEIN,URINE NEGATIVE (Neg); UROBILINOGEN,URINE 0.2 E.U/dL (0.2-1.0)
[2019-04-23 17:55] LABS: UA COLLECTION TYPE FOLEY CATH
[2019-04-23 17:56] LABS: BACTERIA,URINE 4+ /HPF (Neg); SQUAMOUS EPITHELIAL CELL,UR FEW /LPF (FEW)
[2019-04-23 17:57] LABS: WBC CLUMPS,URINE MODERATE /HPF (NEGATIVE); WBC,URINE 30-50 /HPF (0-4)
[2019-04-23 18:04] LABS: URINE AMPHETAMINE SCREEN NEGATIVE (Neg); URINE BARBITUATE SCREEN POSITIVE (Neg); URINE BENZODIAZEPINES SCREEN NEGATIVE (Neg); URINE CANNABINOID SCREEN NEGATIVE (Neg); URINE COCAINE SCREEN NEGATIVE (Neg); URINE METHADONE SCREEN NEGATIVE (Neg); URINE OPIATE SCREEN NEGATIVE (Neg); URINE PHENCYCLIDINE SCREEN NEGATIVE (Neg)
[2019-04-23] MEDS ORDERED: glycerin ADULT rectal suppository RC ONE (18:10)
[2019-04-23] MEDS ORDERED: bisacodyl 5mg tablet.DR PO ONE (18:10)
[2019-04-23] MEDS ORDERED: CefTRIAXone 1000mg IM Kit (w/lidocaine diluent) IM ONE (18:45)
[2019-04-23] MEDS ORDERED: methylnaltrexone br 12mg/0.6ml inj***SubQ only SQ ONE (19:30)
[2019-04-23] MEDS ORDERED: LIDOcaine 2% 10ml TOPICAL JELLY (Urojet) MM ONE (19:30)
[2019-04-23] MEDS ORDERED: normal saline 1000ml 1,000 ML IV ONE (19:30)
[2019-04-23] MEDS ORDERED: MAGN296S50 PO (21:23)
[2019-04-23] MEDS ORDERED: BISA-155 PO (21:23)
[2019-04-23 21:49] VITALS: BP 144/79
== END 2019-04-23 21:52 | disposition home or self-care (01) ==
LOC: ER 14:10
DX: K59.00 Constipation, unspecified (principal); R10.12 Left upper quadrant pain; R06.02 Shortness of breath; E78.00 Pure hypercholesterolemia, unspecified; J44.9 Chronic obstructive pulmonary disease, unspecified; K21.9 Gastro-esophageal reflux disease without esophagitis; I12.9 Hypertensive chronic kidney disease with stage 1 through stage 4 chronic kidney disease, or unspecified chronic kidney disease; E11.22 Type 2 diabetes mellitus with diabetic chronic kidney disease; N18.9 Chronic kidney disease, unspecified; E03.9 Hypothyroidism, unspecified; G89.29 Other chronic pain; F41.9 Anxiety disorder, unspecified; F32.9 Major depressive disorder, single episode, unspecified; Z86.718 Personal history of other venous thrombosis and embolism; Z90.710 Acquired absence of both cervix and uterus; Z90.89 Acquired absence of other organs; Z98.51 Tubal ligation status; Z98.890 Other specified postprocedural states; Z88.8 Allergy status to other drugs, medicaments and biological substances; Z79.01 Long term (current) use of anticoagulants; Z79.899 Other long term (current) drug therapy
CPT/HCPCS: 36415; 74176; 80053; 80305; 81001; 83690; 85025; 87077; 87088; 87186; 93005; 96372; 99284; J0696; J1885; J2212; J7030

== ENCOUNTER 2019-04-25 07:35 | Observation (INO) | payer MEDICARE, MEDICAID ==
[~2019-04-25] VITALS: Ht 160 cm; Wt 160.0 kg
[~2019-04-25 07:35] MED LIST changes: +BISA-155 PO; +MAGN296S50 PO
[2019-04-25] MEDS ORDERED: CefTRIAXone 2gm/D5W 50ml 50 ML IV ONE (08:00)
[2019-04-25 08:06] LABS: BASOPHILS # (AUTO) 0.1 X10'3 (0-0.2); BASOPHILS % (AUTO) 1.2 % (0-1); EOSINOPHILS # (AUTO) 0.1 X10'3 (0-0.9); EOSINOPHILS % (AUTO) 1.6 % (0-6); HEMOGLOBIN 11.1 g/dl (12.0-16.0); LYMPHOCYTES # (AUTO) 1.6 X10'3 (1.1-4.8); LYMPHOCYTES % (AUTO) 20.9 % (21-51); MEAN CORPUSCULAR HEMOGLOBIN 35.5 PG (27.0-31.0); MEAN CORPUSCULAR HGB CONC 33.8 g/dL (33.0-36.5); MEAN PLATELET VOLUME 8.2 FL (7.4-10.4); MONOCYTES # (AUTO) 0.8 X10'3 (0-0.9); MONOCYTES % (AUTO) 10.2 % (2-12); NEUTROPHILS # (AUTO) 4.9 X10'3 (1.8-7.7); NEUTROPHILS % (AUTO) 66.1 % (42-75); PLATELET COUNT 169 X10'3 (140-440); RED BLOOD COUNT 3.14 X10'6 (4.20-5.60); RED CELL DISTRIBUTION WIDTH 16.3 % (11.5-14.5); WHITE BLOOD COUNT 7.4 X10'3 (4.5-11.0)
[2019-04-25 08:15] LABS: PARTIAL THROMBOPLASTIN TIME 31 SECONDS (22-32)
[2019-04-25] MEDS ORDERED: normal saline 1000ML IV soln IVB ONE (08:15)
[2019-04-25 08:17] LABS: ALANINE AMINOTRANSFERASE 24 U/L (12-78); ALBUMIN 2.7 G/DL (3.4-5.0); ALBUMIN/GLOBULIN RATIO 0.6 (1.1-1.5); ALKALINE PHOSPHATASE 123 IU/L (46-116); ANION GAP 5 (8-16); ASPARTATE AMINO TRANSFERASE 22 U/L (10-37); BILIRUBIN,TOTAL 0.4 MG/DL (0.1-1.0); BLOOD UREA NITROGEN 28 MG/DL (7-18); BUN/CREATININE RATIO 19.3 (6.6-38.0); CALCIUM 8.4 MG/DL (8.5-10.1); CHLORIDE 106 MMOL/L (99-107); CREATININE 1.45 MG/DL (0.40-0.90); GLUCOSE 97 MG/DL (70-104); MAGNESIUM 2.4 MG/DL (1.5-2.4); POTASSIUM 4.6 MMOL/L (3.5-5.1); SODIUM 140 MMOL/L (135-145); TOTAL CARBON DIOXIDE 29.5 MMOL/L (24-32); TOTAL PROTEIN 7.6 G/DL (6.4-8.2); eGFR 35 ML/MIN
--- NOTE | 2019-04-25 10:10 | NUR ---
Per Hospitalist no UA needed, hospitalist OK with using UA from previous visit.
[2019-04-25] MEDS: normal saline 1000ml 1,000 ML IV SCH (10:12)
[2019-04-25] MEDS ORDERED: HYDROcodone/acetaminophen 5mg/325mg tablet PO PRN (10:15)
[2019-04-25] MEDS ORDERED: potassium Cl 20 mEq SR tablet PO PRN ×2 (10:15)
[2019-04-25] MEDS ORDERED: ondansetron/PF 4mg/2ml inj IV PRN (10:15)
[2019-04-25] MEDS ORDERED: magnesium Cl slow-release 64mg tablet PO PRN (10:15)
[2019-04-25] MEDS ORDERED: magnesium 4gm in 100ml NS 100 ML IV PRN (10:15)
[2019-04-25] MEDS ORDERED: magnesium 2GM in 50ml NS 50 ML IV PRN (10:15)
[2019-04-25] MEDS ORDERED: HYDROcodone/acetaminophen 10/325mg tab PO PRN (10:15)
[2019-04-25] MEDS ORDERED: potassium CL 10mEq/100ml bag 100 ML IV PRN ×2 (10:15)
[2019-04-25] MEDS ORDERED: acetaminophen 325mg tablet PO PRN ×2 (10:15)
[2019-04-25] MEDS ORDERED: morphine 2 MG/ML inj. syringe IV PRN ×2 (10:15)
--- NOTE | 2019-04-25 11:50 | NUR ---
Report received on patient from ED RN Fabian.
--- NOTE | 2019-04-25 11:57 | NUR ---
Patient admitted to room 4011B. Transferred to bed with help of staff. Tele monitor applied, 2 RN skin check performed. MRSA nasal swab taken. Oriented to room, bed, and call light. Daughter at bedside with patient. Admit VS taken: BP 149/90, HR 113, 18RR, 93% on RA, 96.6 temp axillary. No complaints of pain at this time.
--- NOTE | 2019-04-25 15:14 | NUR ---
Daughter called me to room, concerned about patient's breathing. Patient is breathing heavily, rate 20/min, SpO2 97% on RA. Patient wakes to voice and is alert, able to answer questions, but very fatigued and sleepy. Patient falls back to sleep quickly. Reassurance provided to daughter, and will continue to monitor the patient.
--- NOTE | 2019-04-25 16:00 | NUR ---
Attempted to obtain DART information and assessment on patient, unable to obtain. Patient is not a good historian and is very sleepy and fatigued, the family with the patient is also unable to recall much information.
[2019-04-25 17:00] VITALS: BP 119/64
--- NOTE | 2019-04-25 18:36 | NUR ---
Problems reprioritized. Patient report given, questions answered & plan of care reviewed with Tori RANKIN.
--- NOTE | 2019-04-25 19:08 | NUR ---
Report rec'd from francine Rubin.
--- NOTE | 2019-04-25 19:09 | NUR ---
Med List Pharmacist Sasha is working on acquiring a recent and active med list for this pt. The pt is unable to accurately state meds or dosages, and the daughter that lives with the pt is out of town, the daughter that is in town does not know. The pt is admitted for Observation for increased weakness, UTI, CBP, and COPD. the pt is on Telemetry for AFIB. we will continue to monitor.
--- NOTE | 2019-04-25 19:13 | NUR ---
Orthostatic VS pending PT eval. Pt is morbidly obese and is a significant fall risk.
[2019-04-25] MEDS: K and/or MAG REPLACEMENT MC SCH (19:28)
[2019-04-25] MEDS: docusate sod 100mg capsule PO SCH (20:00)
[2019-04-25] MEDS: heparin, porcine 5000 units/ml vial SQ SCH (20:43)
[2019-04-25] MEDS: linezolid 600mg tablet PO SCH (20:44)
[2019-04-25] MEDS ORDERED: warfarin 10mg tablet PO SCH (21:00)
[2019-04-25] MEDS ORDERED: BUPR75TA8 PO (21:03)
[2019-04-25] MEDS ORDERED: OXYC-511 PO (21:03)
[2019-04-25] MEDS ORDERED: APIX5TAB3 PO (21:03)
[2019-04-25] MEDS ORDERED: AMIO200T61 PO (21:03)
--- NOTE | 2019-04-25 21:13 | NUR ---
Pt is irritated at daughter , states that she feels this admission was "planned, because her daughter needed to go to [place] to get her daughter." Addendum: 04/25/19 at 2132 by Tori Butt RN Amended: Links added.
[2019-04-25 22:00] VITALS: BP 153/98
[2019-04-26 05:00] VITALS: BP 155/77
[2019-04-26] MEDS: normal saline 1000ml 1,000 ML IV SCH (06:12)
--- NOTE | 2019-04-26 06:15 | NUR ---
Patient in room ORTHO 4011. I have received report from MASSIEL Valle and had the opportunity to ask questions and assume patient care.
[2019-04-26 06:27] LABS: BASOPHILS % (AUTO) 0.6 % (0-1); EOSINOPHILS # (AUTO) 0.2 X10'3 (0-0.9); EOSINOPHILS % (AUTO) 4.7 % (0-6); HEMATOCRIT 32.9 % (35.0-45.0); HEMOGLOBIN 11.2 g/dl (12.0-16.0); LYMPHOCYTES # (AUTO) 1.1 X10'3 (1.1-4.8); LYMPHOCYTES % (AUTO) 26.2 % (21-51); MEAN CORPUSCULAR HGB CONC 34.1 g/dL (33.0-36.5); MEAN CORPUSCULAR VOLUME 105.5 FL (78-98); MEAN PLATELET VOLUME 8.4 FL (7.4-10.4); MONOCYTES # (AUTO) 0.5 X10'3 (0-0.9); NEUTROPHILS # (AUTO) 2.4 X10'3 (1.8-7.7); NEUTROPHILS % (AUTO) 57.5 % (42-75); PLATELET COUNT 146 X10'3 (140-440); RED BLOOD COUNT 3.12 X10'6 (4.20-5.60); RED CELL DISTRIBUTION WIDTH 16.2 % (11.5-14.5); WHITE BLOOD COUNT 4.1 X10'3 (4.5-11.0)
--- NOTE | 2019-04-26 06:31 | NUR ---
REPORT GIVEN TO MASSIEL ELAM.
[2019-04-26 07:00] VITALS: BP_SYST 132; BP_SYST 165; BP_DIAS 89; BP_DIAS 97
[2019-04-26 07:03] LABS: ALANINE AMINOTRANSFERASE 24 U/L (12-78); ALBUMIN 2.6 G/DL (3.4-5.0); ALBUMIN/GLOBULIN RATIO 0.6 (1.1-1.5); ALKALINE PHOSPHATASE 116 IU/L (46-116); ANION GAP 5 (8-16); ASPARTATE AMINO TRANSFERASE 24 U/L (10-37); BILIRUBIN,TOTAL 0.4 MG/DL (0.1-1.0); BLOOD UREA NITROGEN 19 MG/DL (7-18); BUN/CREATININE RATIO 17.4 (6.6-38.0); CALCIUM 8.5 MG/DL (8.5-10.1); CHLORIDE 106 MMOL/L (99-107); CREATININE 1.09 MG/DL (0.40-0.90); GLUCOSE 89 MG/DL (70-104); MAGNESIUM 2.3 MG/DL (1.5-2.4); POTASSIUM 4.3 MMOL/L (3.5-5.1); SODIUM 139 MMOL/L (135-145); TOTAL CARBON DIOXIDE 28.2 MMOL/L (24-32); TOTAL PROTEIN 7.3 G/DL (6.4-8.2); eGFR 49 ML/MIN
[2019-04-26] MEDS: docusate sod 100mg capsule PO SCH ×2 (08:00→08:41)
[2019-04-26] MEDS: K and/or MAG REPLACEMENT MC SCH (08:00)
[2019-04-26] MEDS: heparin, porcine 5000 units/ml vial SQ SCH (08:41)
[2019-04-26] MEDS: linezolid 600mg tablet PO SCH (08:41)
--- NOTE | 2019-04-26 09:28 | NUR ---
Paged Dr. Donis, pt rhythm a. fib HR in 140s: "PAGER ID: [phone] MESSAGE: [phone]. Chacorta Muñiz. HR 140s a. fib, since this morning. Pt asymptomatic, no SOB, no palpitations. BP 130/75. Karen O/N ext [phone]."
--- NOTE | 2019-04-26 09:30 | NUR ---
Spoke with Dr. Donis regarding elevated HR. Stated that she will reconcile medications and call back. No orders received at this time.
[2019-04-26 10:00] VITALS: BP 123/73
[2019-04-26] MEDS ORDERED: albuterol 2.5 MG/3 ML nebule NEB PRN (12:15)
[2019-04-26] MEDS ORDERED: LINE600T14 PO (12:22)
[2019-04-26] MEDS ORDERED: OXYC-511 PO (12:22)
--- NOTE | 2019-04-26 13:25 | NUR ---
Called prescription into [facility] on [address] in [place].
--- NOTE | 2019-04-26 14:30 | NUR ---
Patient stable for discharge per MD orders. Prescriptions called in to [facility] in [place]. New prescriptions reviewed, and medication regimen reviewed with patient. All discharge instructions reviewed with patient; all questions answered. Educational materials provided and understood by patient. PIV discontinued, cannula intact, clean, dry dressing in place. groundwater monitoring technician removed and returned. All personal belongings collected and sent with patient. Patient wheeled out of facility at 1430 by hospital personnel.
--- NOTE | 2019-04-26 14:54 | NUR ---
Trva vysa- Pt seen at bedside prior to discharge and provided with written and verbal low tyramine nutrition therapy education and RD contact information. Will remain available. Addendum: 04/26/19 at [address] Amended: Links added.
[2019-04-26] MEDS ORDERED: capsaicin 0.025% 60gm cream TP SCH (20:00)
[2019-04-26] MEDS ORDERED: OMEGA-3/DHA/EPA/FISH OIL 1 EACH CAPSULE.DR PO SCH (20:00)
[2019-04-26] MEDS ORDERED: metoprolol tartrate 25mg tablet PO SCH (20:00)
[2019-04-26] MEDS ORDERED: apixaban 5mg tablet PO SCH ×2 (20:00)
[2019-04-26] MEDS ORDERED: primidone 250mg tablet PO SCH (20:00)
[2019-04-26] MEDS ORDERED: famotidine 10mg tablet PO SCH (21:00)
[2019-04-26] MEDS ORDERED: buPROPion 75mg tablet PO SCH (21:00)
[2019-04-27] MEDS ORDERED: levoTHYROXINE 25mcg tablet PO SCH (07:00)
[2019-04-27] MEDS ORDERED: amiodarone 200mg tablet PO SCH (08:00)
[2019-04-27] MEDS ORDERED: levoTHYROXINE 112mcg tablet PO SCH (08:00)
[2019-04-27] MEDS ORDERED: MULTIVIT-MIN/FERROUS GLUCONATE 9 MG/15 ML LIQUID PO SCH (08:00)
[2019-04-27] MEDS ORDERED: furosemide 20MG tablet PO SCH (08:00)
[2019-04-27] MEDS ORDERED: nortriptyline 25mg capsule PO SCH (08:00)
[2019-04-27] MEDS ORDERED: mirabegron 25mg ER tablet PO SCH (08:00)
[2019-04-27] MEDS ORDERED: potassium chloride 10mEq ER tablet PO SCH (08:00)
[2019-04-27] MEDS ORDERED: cyanocobalamin 500mcg tablet PO SCH (08:00)
[2019-04-27] MEDS ORDERED: losartan 50mg tablet PO SCH (08:00)
[2019-04-27] MEDS ORDERED: buPROPion SR 150mg tablet PO SCH (08:00)
== END 2019-04-26 14:30 | disposition home or self-care (01) ==
LOC: ER 07:35 → ED HOLD 10:12 → EDBEDREQTM 11:25 → ORTHO 4S 12:00
PROVIDERS: ADMIT Internal Medicine; ATTEND Internal Medicine
DX: N39.0 Urinary tract infection, site not specified (principal); R53.1 Weakness; G89.29 Other chronic pain; M54.5 Low back pain; I48.20 Chronic atrial fibrillation, unspecified; I12.9 Hypertensive chronic kidney disease with stage 1 through stage 4 chronic kidney disease, or unspecified chronic kidney disease; E11.22 Type 2 diabetes mellitus with diabetic chronic kidney disease; N18.3 Chronic kidney disease, stage 3 (moderate); E66.01 Morbid (severe) obesity due to excess calories; I89.0 Lymphedema, not elsewhere classified; E78.00 Pure hypercholesterolemia, unspecified; J44.9 Chronic obstructive pulmonary disease, unspecified; E11.51 Type 2 diabetes mellitus with diabetic peripheral angiopathy without gangrene; K21.9 Gastro-esophageal reflux disease without esophagitis; F41.9 Anxiety disorder, unspecified; F32.9 Major depressive disorder, single episode, unspecified; Z86.718 Personal history of other venous thrombosis and embolism; Z16.24 Resistance to multiple antibiotics; Z90.710 Acquired absence of both cervix and uterus; Z98.51 Tubal ligation status; Z90.89 Acquired absence of other organs; Z96.653 Presence of artificial knee joint, bilateral; Z98.1 Arthrodesis status; Z79.01 Long term (current) use of anticoagulants; Z79.899 Other long term (current) drug therapy; Z88.8 Allergy status to other drugs, medicaments and biological substances; Z68.44 Body mass index [BMI] 60.0-69.9, adult
CPT/HCPCS: 36415; 71045; 80053; 83605; 83735; 84145; 85025; 85610; 85730; 87040; 87081; 93005; 96365; 96372; 97110; 97116; 97162; 99284; G0378; J0696; J1644; J7030

== ENCOUNTER 2019-05-16 17:47 | Observation (INO) | payer MEDICARE, MEDICAID ==
[~2019-05-16] VITALS: Ht 160 cm; Wt 158.6 kg
[~2019-05-16 17:47] MED LIST changes: +AMIO200T61 PO; +APIX5TAB3 PO; -BISA-155 PO; +BUPR75TA8 PO; -HYDR-3972 PO; +LINE600T14 PO; -MAGN296S50 PO; +OXYC-511 PO; -PRIM50TA3 PO; -WARF10TA50 PO; -[UNRECOGNIZED DRUG - CODE] TOP
[2019-05-16] MEDS ORDERED: fluconazole 150mg tablet PO ONE (18:55)
[2019-05-16 19:35] LABS: EOSINOPHILS # (AUTO) 0.2 X10'3 (0-0.9); EOSINOPHILS % (AUTO) 4.2 % (0-6); HEMATOCRIT 36.4 % (35.0-45.0); HEMOGLOBIN 12.1 g/dl (12.0-16.0); LYMPHOCYTES # (AUTO) 1.9 X10'3 (1.1-4.8); MEAN CORPUSCULAR HEMOGLOBIN 34.8 PG (27.0-31.0); MEAN CORPUSCULAR HGB CONC 33.3 g/dL (33.0-36.5); MEAN CORPUSCULAR VOLUME 104.4 FL (78-98); MEAN PLATELET VOLUME 8.1 FL (7.4-10.4); MONOCYTES # (AUTO) 0.7 X10'3 (0-0.9); MONOCYTES % (AUTO) 14.3 % (2-12); NEUTROPHILS # (AUTO) 1.8 X10'3 (1.8-7.7); NEUTROPHILS % (AUTO) 39.5 % (42-75); PLATELET COUNT 220 X10'3 (140-440); RED BLOOD COUNT 3.49 X10'6 (4.20-5.60); RED CELL DISTRIBUTION WIDTH 16.1 % (11.5-14.5); WHITE BLOOD COUNT 4.7 X10'3 (4.5-11.0)
[2019-05-16 19:42] LABS: CLARITY,URINE CLOUDY (Clear); COLOR,URINE YELLOW (Yellow); GLUCOSE, URINE NEGATIVE (Neg); KETONES,URINE NEGATIVE (Neg); LEUKOCYTE ESTERASE ,URINE LARGE (Neg); NITRITES, URINE POSITIVE (Neg); OCCULT BLOOD,URINE SMALL (Neg); PROTEIN,URINE NEGATIVE (Neg); UROBILINOGEN,URINE 0.2 E.U/dL (0.2-1.0)
[2019-05-16 19:43] LABS: UA COLLECTION TYPE STRAIGHT CATH
[2019-05-16 19:49] LABS: URINE AMPHETAMINE SCREEN NEGATIVE (Neg); URINE BARBITUATE SCREEN POSITIVE (Neg); URINE BENZODIAZEPINES SCREEN NEGATIVE (Neg); URINE CANNABINOID SCREEN NEGATIVE (Neg); URINE COCAINE SCREEN NEGATIVE (Neg); URINE METHADONE SCREEN NEGATIVE (Neg); URINE OPIATE SCREEN NEGATIVE (Neg); URINE PHENCYCLIDINE SCREEN NEGATIVE (Neg)
[2019-05-16 19:55] LABS: BACTERIA,URINE 4+ /HPF (Neg); MUCUS STRANDS NONE SEEN /LPF (Neg); SQUAMOUS EPITHELIAL CELL,UR FEW /LPF (FEW); WBC CLUMPS,URINE MANY /HPF (NEGATIVE); WBC,URINE TNTC /HPF (0-4)
[2019-05-16 19:57] LABS: ALANINE AMINOTRANSFERASE 26 U/L (12-78); ALBUMIN/GLOBULIN RATIO 0.6 (1.1-1.5); ALKALINE PHOSPHATASE 123 IU/L (46-116); ANION GAP 7 (8-16); ASPARTATE AMINO TRANSFERASE 33 U/L (10-37); BILIRUBIN,TOTAL 0.3 MG/DL (0.1-1.0); BLOOD UREA NITROGEN 27 MG/DL (7-18); BUN/CREATININE RATIO 20.5 (6.6-38.0); CALCIUM 8.3 MG/DL (8.5-10.1); CHLORIDE 103 MMOL/L (99-107); CREATININE 1.32 MG/DL (0.40-0.90); GLUCOSE 91 MG/DL (70-104); POTASSIUM 4.2 MMOL/L (3.5-5.1); SODIUM 138 MMOL/L (135-145); TOTAL CARBON DIOXIDE 28.4 MMOL/L (24-32); TOTAL PROTEIN 8.2 G/DL (6.4-8.2); eGFR 39 ML/MIN
[2019-05-16 20:07] LABS: VALPROATE < 3.0 UG/ML (50-100)
[2019-05-16 20:10] LABS: ACETAMINOPHEN < 2.0 UG/ML (10-30); ETHANOL < 0.010 GM/DL (0.0-0.010)
[2019-05-16] MEDS: cephalexin 250mg capsule PO SCH (21:08)
[2019-05-16] MEDS ORDERED: diphenhydrAMINE 50 mg/ml inj IV ONE (22:20)
[2019-05-16] MEDS: nystatin 15 GM powder TP SCH (22:40)
--- NOTE | 2019-05-16 22:40 | NUR ---
pt crying loudly. When asked patient stated she itched all over in her skin folds and in her lisa area. Pt skin folds treated w/ nystatin powder and pt given Benadryl for itching. Pt fell asleep.
[2019-05-17] MEDS ORDERED: oxyCODONE/APAP 10/325mg tablet PO ONE (01:35)
--- NOTE | 2019-05-17 01:45 | NUR ---
Pt yelling out from her bed to the doctor demanding to talk to him. Pt aslo said she wasn't staying and was going home. Pt told that the Doctor was busy treating patients and unable to see her just now. Pt was also told that she would be staying in the hospital for 24 hrs. on a 1798 hold and would be evaluated by a psychiatrist because she had made statements to her family that she wanted to . Pt stated, "I have been saying that for three years"! Pt was argumentative stating, "That's not my problem!", when she was told that she would have to wait for morning to be evaluated.
--- NOTE | 2019-05-17 01:47 | NUR ---
Pt is resting in bed, reports that she is uncomfortable and has pain in her legs. Pt pulled up and repositioned in bed with the help of MASSIEL Blankenship. Pt also has new order for percocet.
[2019-05-17] MEDS ORDERED: PRIM50TA27 PO (01:59)
[2019-05-17] MEDS ORDERED: albuterol 2.5 MG/3 ML nebule NEB PRN (03:50)
--- NOTE | 2019-05-17 06:05 | NUR ---
Pt assisted to bedside commode. Pt was pleasant and appropriate. Pt was assisted back into bed and given warm blankets.
[2019-05-17] MEDS ORDERED: levoTHYROXINE 25mcg tablet PO SCH (07:00)
[2019-05-17] MEDS ORDERED: diphenhydrAMINE 50 mg/ml inj IV ONE (07:05)
[2019-05-17] MEDS ORDERED: levoTHYROXINE 112mcg tablet PO SCH (08:00)
[2019-05-17] MEDS ORDERED: potassium chloride 10mEq ER tablet PO SCH (08:00)
[2019-05-17] MEDS: buPROPion SR 150mg tablet PO SCH (08:59)
[2019-05-17] MEDS: OMEGA-3/DHA/EPA/FISH OIL 1 EACH CAPSULE.DR PO SCH ×2 (09:05→21:12)
[2019-05-17] MEDS: metoprolol tartrate 25mg tablet PO SCH ×2 (09:05→21:22)
[2019-05-17] MEDS: furosemide 20MG tablet PO SCH (09:06)
[2019-05-17] MEDS: amiodarone 200mg tablet PO SCH (09:06)
[2019-05-17] MEDS: multivitamins, therapeutics tablet PO SCH (09:06)
[2019-05-17] MEDS: ascorbic acid 500mg tablet PO SCH ×2 (09:07→21:13)
[2019-05-17] MEDS: primidone 50mg tablet PO SCH ×2 (09:08→21:23)
[2019-05-17] MEDS: vitamin E 400 unit capsule PO SCH (09:08)
[2019-05-17] MEDS: cyanocobalamin 500mcg tablet PO SCH (09:08)
[2019-05-17] MEDS: levoTHYROXINE 25mcg tablet PO SCH (09:09)
[2019-05-17] MEDS: levoTHYROXINE 112mcg tablet PO SCH (09:09)
[2019-05-17] MEDS: potassium chloride 10mEq ER tablet PO SCH (09:10)
[2019-05-17] MEDS: cephalexin 250mg capsule PO SCH ×3 (09:10→17:00)
[2019-05-17] MEDS: mirabegron 25mg ER tablet PO SCH (09:11)
[2019-05-17] MEDS: primidone 250mg tablet PO SCH ×2 (09:11→22:20)
[2019-05-17] MEDS: oxyCODONE/APAP 10/325mg tablet PO SCH ×2 (09:12→21:13)
[2019-05-17] MEDS: desmopressin 0.1mg/ml nasal spray 5ml btl NS SCH ×2 (09:13→09:24)
[2019-05-17] MEDS: nystatin 15 GM powder TP SCH ×4 (09:13→21:14)
[2019-05-17] MEDS: apixaban 5mg tablet PO SCH ×2 (09:17→21:23)
[2019-05-17] MEDS ORDERED: LORazepam 2 mg/ml vial IV ONE (11:30)
--- NOTE | 2019-05-17 13:06 | NUR ---
Patients daughters at bedside. They are inquiring as to what is the plan. They stated the patient often wishes not to live the way she is living. The patient is totally dependant for care. One daughter stated the patient does not have the ability to access anything to end her own life.
[2019-05-17] MEDS ORDERED: morphine 2 MG/ML inj. syringe IV ONE (13:45)
--- NOTE | 2019-05-17 14:19 | NUR ---
Rec'd call to consult on this pt. Family is saying that pt has become so weak that she needs short term rehab. Per ER MD pt has a UTI and he will admit her. I met w/ the family and informed them that we will refer pt out for short term rehab and they were agreeable w/ that plan. One of the daughters has contacts at [facility] and plans to speak w/ them tomorrow. I explained to them if there are not any accepting facilities then she will have to go home. She owns her own home and the other daughter lives w/ her and services as her furniture inspector caregiver. They are agreeable to taking her home under those circunstances.
[2019-05-17] MEDS ORDERED: magnesium hydroxide 30ml (MOM) UD suspension PO PRN (14:25)
[2019-05-17] MEDS ORDERED: ondansetron/PF 4mg/2ml inj IV PRN (14:25)
[2019-05-17] MEDS ORDERED: acetaminophen 325mg tablet PO PRN (14:25)
[2019-05-17] MEDS ORDERED: mag hydrox/Alum hydrox/simeth 30ml oral suspension PO PRN (14:25)
[2019-05-17] MEDS: normal saline 1000ml 1,000 ML IV SCH (14:33)
[2019-05-17] MEDS: albuterol 2.5 MG/3 ML nebule NEB SCH ×2 (20:00→23:23)
[2019-05-17] MEDS ORDERED: famotidine 10mg tablet PO SCH (21:00)
[2019-05-17] MEDS ORDERED: desmopressin 0.1mg/ml nasal spray 5ml btl NS SCH (21:00)
[2019-05-17] MEDS ORDERED: buPROPion 75mg tablet PO SCH (21:00)
[2019-05-17] MEDS: heparin, porcine 5000 units/ml vial SQ SCH (21:12)
[2019-05-18] MEDS: normal saline 1000ml 1,000 ML IV SCH ×2 (00:41→10:22)
--- NOTE | 2019-05-18 00:45 | NUR ---
REPOSITIONED PATIENT ON HER RIGHT SIDE, PULLED UP IN BED IN POSITION OF COMFORT.
--- NOTE | 2019-05-18 02:30 | NUR ---
PT PULLED UP IN BED AND REPOSITIONED FOR COMFORT.
[2019-05-18] MEDS: albuterol 2.5 MG/3 ML nebule NEB SCH ×4 (03:35→16:00)
--- NOTE | 2019-05-18 05:58 | NUR ---
Pt toileted to the commode and then repositioned in bed in position of comfort.
[2019-05-18 06:05] LABS: BASOPHILS % (AUTO) 0.8 % (0-1); EOSINOPHILS # (AUTO) 0.1 X10'3 (0-0.9); EOSINOPHILS % (AUTO) 3.1 % (0-6); HEMATOCRIT 32.9 % (35.0-45.0); HEMOGLOBIN 11.3 g/dl (12.0-16.0); LYMPHOCYTES # (AUTO) 1.6 X10'3 (1.1-4.8); LYMPHOCYTES % (AUTO) 39.2 % (21-51); MEAN CORPUSCULAR HEMOGLOBIN 35.6 PG (27.0-31.0); MEAN CORPUSCULAR HGB CONC 34.2 g/dL (33.0-36.5); MEAN PLATELET VOLUME 7.9 FL (7.4-10.4); MONOCYTES # (AUTO) 0.6 X10'3 (0-0.9); MONOCYTES % (AUTO) 15.2 % (2-12); NEUTROPHILS # (AUTO) 1.7 X10'3 (1.8-7.7); NEUTROPHILS % (AUTO) 41.7 % (42-75); PLATELET COUNT 180 X10'3 (140-440); RED BLOOD COUNT 3.16 X10'6 (4.20-5.60); RED CELL DISTRIBUTION WIDTH 16.2 % (11.5-14.5); WHITE BLOOD COUNT 4.2 X10'3 (4.5-11.0)
[2019-05-18 06:10] LABS: ALBUMIN 2.5 G/DL (3.4-5.0); ANION GAP 5 (8-16); BLOOD UREA NITROGEN 25 MG/DL (7-18); BUN/CREATININE RATIO 20.5 (6.6-38.0); CALCIUM 8.3 MG/DL (8.5-10.1); CHLORIDE 107 MMOL/L (99-107); CREATININE 1.22 MG/DL (0.40-0.90); GLUCOSE 90 MG/DL (70-104); POTASSIUM 4.5 MMOL/L (3.5-5.1); SODIUM 140 MMOL/L (135-145); TOTAL CARBON DIOXIDE 27.7 MMOL/L (24-32); eGFR 43 ML/MIN
--- NOTE | 2019-05-18 07:19 | NUR ---
PT IS SLEEPING AT THIS TIME, RESPIRATIONS SPONTANEOUS, EVEN AND UNLABORED.
[2019-05-18] MEDS ORDERED: fluconazole 100mg tablet PO SCH (08:00)
[2019-05-18] MEDS: nystatin 15 GM powder TP SCH ×2 (08:00→12:44)
[2019-05-18] MEDS: apixaban 5mg tablet PO SCH (08:00)
[2019-05-18] MEDS ORDERED: CefTRIAXone 2gm/D5W 50ml 50 ML IV SCH (08:00)
[2019-05-18] MEDS: levoTHYROXINE 25mcg tablet PO SCH (08:48)
[2019-05-18] MEDS: levoTHYROXINE 112mcg tablet PO SCH (08:48)
[2019-05-18] MEDS: OMEGA-3/DHA/EPA/FISH OIL 1 EACH CAPSULE.DR PO SCH (08:49)
[2019-05-18] MEDS: furosemide 20MG tablet PO SCH (08:49)
[2019-05-18] MEDS: amiodarone 200mg tablet PO SCH (08:49)
[2019-05-18] MEDS: potassium chloride 10mEq ER tablet PO SCH (08:49)
[2019-05-18] MEDS: ascorbic acid 500mg tablet PO SCH (08:49)
[2019-05-18] MEDS: buPROPion SR 150mg tablet PO SCH (08:49)
[2019-05-18] MEDS: multivitamins, therapeutics tablet PO SCH (08:50)
[2019-05-18] MEDS: metoprolol tartrate 25mg tablet PO SCH (08:50)
[2019-05-18] MEDS: vitamin E 400 unit capsule PO SCH (08:50)
[2019-05-18] MEDS: oxyCODONE/APAP 10/325mg tablet PO SCH (08:50)
[2019-05-18] MEDS: mirabegron 25mg ER tablet PO SCH (08:51)
[2019-05-18] MEDS: primidone 250mg tablet PO SCH (08:52)
[2019-05-18] MEDS: heparin, porcine 5000 units/ml vial SQ SCH (08:52)
[2019-05-18 09:17] LABS: TOTAL CELLS COUNTED 100
[2019-05-18 09:18] LABS: ANISOCYTOSIS 1+; PLATELET ESTIMATE NORMAL
[2019-05-18] MEDS ORDERED: albuterol 2.5 MG/3 ML nebule NEB PRN (09:30)
[2019-05-18] MEDS: cyanocobalamin 500mcg tablet PO SCH (10:06)
[2019-05-18] MEDS: primidone 50mg tablet PO SCH (10:07)
--- NOTE | 2019-05-18 10:11 | NUR ---
MEDICATED PT WITH REMAINING MEDS DELIVERED BY LIGHT RAIL TRANSIT OPERATOR, PT DOES NOT WANT TO TAKE ELIQUIS BECUASE PT REPORTS ITCHING SINCE STARTING ELIQUIS 1 MONTH AGO, [facility] [employer] AND PERSONAL LINES SALES REP AT BEDSIDE DISCUSSING PT OPTIONS PT NOT ELIGIBLE FOR ADMISSION AND MAY NEED DISCHARGE HOME AND CONTNIUE HOME SERVICES WITH HOME HEALTH AND DAUGHTER SENIOR REPORT DEVELOPER.
--- NOTE | 2019-05-18 10:36 | NUR ---
PICC NURSE AT BEDSIDE TO HAVE ED PROVIDER SIGN CONSENT, ALSO REPORTS CM WILL USUALLY VERIFY IV ABX IS COVERED UNDER INSURANCE PRIOR TO INSERTING PICC LINE, PAGED CASE MANAGEMENT TO DISCUSS, ALSO PICC NURSE NOTED SHE HAS THREE OTHER PICC LINES TO PLACE THAT HAVE PRIORITY SO SHE WILL NOT BE ABLE TO PLACE PICC UNTIL THIS AFTERNOON, [facility] WITH CASE MANAGMENT CALLED BACK AND WILL REVIEW THIS WITH OTHER GENETIC SUPERVISOR
[2019-05-18] MEDS ORDERED: CEFT1VIA14 IV (10:54)
--- NOTE | 2019-05-18 11:11 | NUR ---
I FAXED IV ORDERS TO [facility]. I FAXED BETH HH ORDERS TO [facility]. AWAITING PICC LINE PLACEMENT.
--- NOTE | 2019-05-18 14:49 | NUR ---
CALLED [facility] CASE MANAGEMENT, PT DAUGHTER JOSEPH IS TO GO TO [facility] [phone], [address] [facility] TODAY TO GET SUPPLIES, INFUSION AND BRIEF TEACHING, $1.30 PT RESPONSIBILITY [facility] TO GO TO HOUSE TOMORROW AT HOUSE TOMORROW TO INFUSE ABX AND TEACH DAUGHTER, RAUL TO PUT IN DISCHARGE
--- NOTE | 2019-05-18 14:53 | NUR ---
I SPOKE WITH LUDA AT [facility]. MEDICATION AND SUPPLIES WILL BE COVERED BY PATIENTS INSURANCE. PATIENT WILL OWE ONLY $1.30. LUDA STATES THAT PATIENT/FAMILY IS TO LEVEL VIAL GRINDER MEDICATION AND SUPPLIES AT [facility] [address] [place] [address]. A BRIEF TEACHING SESSION WILL BE PROVIDED. I CALLED [facility]. I VERIFIED WITH RN THAT PATIENT WILL BE SEEN TOMORROW IN HER HOME. ADDITIONAL IV TEACHING CAN BE PROVIDED AT THAT TIME. I DISCUSSED THIS WITH DAUGHTER JOSEPH AT PATIENTS BEDSIDE. DISCUSSED WITH RN, EDER. PLAN: DC HOME WITH [facility], AND [facility]. MIDLINE IV TO BE PLACED.
--- NOTE | 2019-05-18 15:55 | NUR ---
MIDLINE PLACED TO RIGHT BRACHIAL VEIN X'S 1 ATTEMPT WITH ULTRASOUND GUIDANCE. TIP ENDS MID AXILLA. PT TOLERATED WELL. MIDLINE PLACEMENT ORDER CONFIRMED WITH DR CARTER ORDER FOR ANTIBIOTICS ARE FOR 10 DAYS AND MEDICATION ORDERED IS OK FOR MIDLINE ALSO CONFIRMED WITH [facility]
--- NOTE | 2019-05-18 16:09 | NUR ---
MIDLINE HAS BEEN PLACED. I FAXED INSERTION RECORD TO [facility], AND TO [facility] . PATIENT WILL BE DISCHARGED HOME WITH HOME [facility] INF[facility], AND .
[2019-05-18 16:11] VITALS: BP 145/89
== END 2019-05-18 16:11 | disposition home health service (06) ==
LOC: ER 17:49 → INTOOBSV 05-17 14:22 → ED HOLD 05-17 14:22 → CANBEDREQ 05-18 21:49
PROVIDERS: ADMIT Family Medicine; ATTEND Family Medicine
DX: N30.01 Acute cystitis with hematuria (principal); R41.82 Altered mental status, unspecified; I13.0 Hypertensive heart and chronic kidney disease with heart failure and stage 1 through stage 4 chronic kidney disease, or unspecified chronic kidney disease; E11.22 Type 2 diabetes mellitus with diabetic chronic kidney disease; I50.9 Heart failure, unspecified; N18.9 Chronic kidney disease, unspecified; I48.20 Chronic atrial fibrillation, unspecified; I89.0 Lymphedema, not elsewhere classified; E66.01 Morbid (severe) obesity due to excess calories; G89.29 Other chronic pain; M54.9 Dorsalgia, unspecified; K21.9 Gastro-esophageal reflux disease without esophagitis; F41.9 Anxiety disorder, unspecified; F32.9 Major depressive disorder, single episode, unspecified; E78.00 Pure hypercholesterolemia, unspecified; E78.5 Hyperlipidemia, unspecified; E03.9 Hypothyroidism, unspecified; J44.9 Chronic obstructive pulmonary disease, unspecified; Z87.440 Personal history of urinary (tract) infections; Z86.718 Personal history of other venous thrombosis and embolism; Z90.710 Acquired absence of both cervix and uterus; Z98.51 Tubal ligation status; Z90.89 Acquired absence of other organs; Z96.653 Presence of artificial knee joint, bilateral; Z79.82 Long term (current) use of aspirin; Z79.01 Long term (current) use of anticoagulants; Z79.899 Other long term (current) drug therapy; Z88.8 Allergy status to other drugs, medicaments and biological substances; Z88.0 Allergy status to penicillin
CPT/HCPCS: 36415; 71045; 76937; 80048; 80053; 80164; 80305; 80320; 80329; 81001; 83880; 84443; 84484; 85025; 94640; 94760; 96361; 96365; 96372; 96375; 96376; 99284; G0378; J0696; J1200; J1644; J2060; J2270; 93005; 96374; 99285; J3420

== ENCOUNTER 2019-07-03 15:29 | Inpatient (IN) | payer MEDICARE, MEDICAID ==
[~2019-07-03] VITALS: Ht 161.3 cm; Wt 150.0 kg
[~2019-07-03 15:29] MED LIST changes: -CAPS60CR6 TP; -LINE600T14 PO; -NORT25CA PO; +PRIM50TA27 PO; -VALS80TA2 PO
--- NOTE | 2019-07-03 15:38 | NUR ---
No C collar needed per alan MARAVILLA.
[2019-07-03] MEDS ORDERED: morphine 4 MG/ML inj SYRINge IM ONE (15:55)
--- NOTE | 2019-07-03 18:06 | NUR ---
Wick placed due to patient needing to void.
[2019-07-03 19:31] LABS: BASOPHILS % (AUTO) 0.9 % (0-1); EOSINOPHILS # (AUTO) 0.1 X10'3 (0-0.9); EOSINOPHILS % (AUTO) 3.4 % (0-6); HEMATOCRIT 35.3 % (35.0-45.0); HEMOGLOBIN 11.7 g/dl (12.0-16.0); LYMPHOCYTES # (AUTO) 1.2 X10'3 (1.1-4.8); MEAN CORPUSCULAR HEMOGLOBIN 34.2 PG (27.0-31.0); MEAN CORPUSCULAR HGB CONC 33.2 g/dL (33.0-36.5); MEAN CORPUSCULAR VOLUME 102.9 FL (78-98); MEAN PLATELET VOLUME 7.8 FL (7.4-10.4); MONOCYTES # (AUTO) 0.6 X10'3 (0-0.9); MONOCYTES % (AUTO) 14.3 % (2-12); NEUTROPHILS % (AUTO) 51.4 % (42-75); PLATELET COUNT 195 X10'3 (140-440); RED BLOOD COUNT 3.43 X10'6 (4.20-5.60); WHITE BLOOD COUNT 3.9 X10'3 (4.5-11.0)
[2019-07-03 19:36] LABS: PARTIAL THROMBOPLASTIN TIME 29 SECONDS (22-32)
[2019-07-03 19:38] LABS: ALANINE AMINOTRANSFERASE 23 U/L (12-78); ALBUMIN 2.6 G/DL (3.4-5.0); ALBUMIN/GLOBULIN RATIO 0.5 (1.1-1.5); ALKALINE PHOSPHATASE 133 IU/L (46-116); ANION GAP 4 (8-16); ASPARTATE AMINO TRANSFERASE 25 U/L (10-37); BILIRUBIN,TOTAL 0.2 MG/DL (0.1-1.0); BLOOD UREA NITROGEN 20 MG/DL (7-18); CALCIUM 8.5 MG/DL (8.5-10.1); CHLORIDE 110 MMOL/L (99-107); CREATININE 1.43 MG/DL (0.40-0.90); GLUCOSE 130 MG/DL (70-104); SODIUM 145 MMOL/L (135-145); TOTAL CARBON DIOXIDE 31.5 MMOL/L (24-32); TOTAL PROTEIN 7.8 G/DL (6.4-8.2); eGFR 36 ML/MIN
[2019-07-03 19:41] LABS: ETHANOL < 0.010 GM/DL (0.0-0.010); TROPONIN I < 0.04 NG/ML (0.0-0.05)
[2019-07-03] MEDS ORDERED: acetaminophen 325mg tablet PO PRN (20:05)
[2019-07-03] MEDS ORDERED: mag hydrox/Alum hydrox/simeth 30ml oral suspension PO PRN (20:05)
[2019-07-03] MEDS ORDERED: potassium Cl 20 mEq SR tablet PO PRN ×2 (20:05)
[2019-07-03] MEDS ORDERED: magnesium 4gm in 100ml NS 100 ML IV PRN (20:05)
[2019-07-03] MEDS ORDERED: bisacodyl 10mg suppository rectal RC PRN (20:05)
[2019-07-03] MEDS ORDERED: magnesium Cl slow-release 64mg tablet PO PRN (20:05)
[2019-07-03] MEDS ORDERED: magnesium 2GM in 50ml NS 50 ML IV PRN (20:05)
[2019-07-03] MEDS ORDERED: ondansetron/PF 4mg/2ml inj IV PRN (20:05)
[2019-07-03] MEDS ORDERED: potassium CL 10mEq/100ml bag 100 ML IV PRN ×2 (20:05)
[2019-07-03 20:15] LABS: ABG BASE EXCESS 4.7 mmol/L (-2.0-3.0); ABG OXYGEN SATURATION 93.3 % (95-98); ABG PCO2 (T) 52.7 mmHg (35.0-45.0); ABG PH (T) 7.386 (7.350-7.450); FCOHb 0.6 % (0.5-1.5); FMetHb 0.3 % (0.3-1.12); FO2Hb 92.5 % (94-100); PATIENT TEMPERATURE 36.6; TOTAL HEMOGLOBIN 12.3 G/dl (12.0-16.0)
[2019-07-03] MEDS ORDERED: HYDR-3686 PO (20:17)
[2019-07-03] MEDS ORDERED: AMIO200T61 PO (20:21)
[2019-07-03] MEDS: famotidine 20mg tablet PO SCH (21:00)
[2019-07-03] MEDS ORDERED: buPROPion 75mg tablet PO SCH (21:00)
[2019-07-03 21:30] VITALS: BP 156/93
--- NOTE | 2019-07-03 22:21 | NUR ---
RD'D VERBAL REPORT FROM BLANCA, ED RN AND ASSUMED CARE OF PATIENT WHEN SHE ARRIVED ON THE UNIT AT 2130. TRANSFERRED INTO THE BED FROM THE [facility] WITH SLIDE BOARD AND 4 STAFF TO ASSIST. PATIENT ARRIVED MOANING AND CRYING, REPEATING OVER AND OVER "JUST LET ME , JUST LET ME ". 2 RN SKIN CHECK DONE, VITALS TAKEN AND POSITIONED UP IN THE BED WITH HEELS ELEVATED. NEW WICK PLACED NO URINE COLLECTED ORDERED IN ED. WILL COLLECT SAMPLE AND SEND TO LAB WHEN PATIENT VOIDS. ALL EQUIPMENT IS NEW TO OBTAIN A CLEAN URINE SAMPLE. CALL LIGHT GIVEN TO PATIENT AND EXPLAINED IT'S USE. HAS NOT VERBALIZED ANYTHING OTHER THAN WANTING TO . IN SIGHT OF NURSES STATION BUT WAS REPORTED SHE HAS NOT BEEN TRYING TO GET OUT OF BED. TABS IN PLACE ALSO. BED LOW AND LOCKED POSITION, RAILS UP X3
[2019-07-04] MEDS ORDERED: albuterol 2.5 MG/3 ML nebule NEB PRN
[2019-07-04 02:01] LABS: URINE AMPHETAMINE SCREEN NEGATIVE (Neg); URINE BARBITUATE SCREEN POSITIVE (Neg); URINE BENZODIAZEPINES SCREEN NEGATIVE (Neg); URINE CANNABINOID SCREEN NEGATIVE (Neg); URINE COCAINE SCREEN NEGATIVE (Neg); URINE METHADONE SCREEN NEGATIVE (Neg); URINE OPIATE SCREEN POSITIVE (Neg); URINE PHENCYCLIDINE SCREEN NEGATIVE (Neg)
[2019-07-04] MEDS: HYDROcodone/acetaminophen 5mg/325mg tablet PO PRN ×2 (02:10→06:52)
[2019-07-04 02:27] LABS: CLARITY,URINE CLOUDY (Clear); COLOR,URINE YELLOW (Yellow); GLUCOSE, URINE NEGATIVE (Neg); KETONES,URINE NEGATIVE (Neg); LEUKOCYTE ESTERASE ,URINE LARGE (Neg); NITRITES, URINE POSITIVE (Neg); OCCULT BLOOD,URINE TRACE-INTACT (Neg); PROTEIN,URINE NEGATIVE (Neg); UROBILINOGEN,URINE 0.2 E.U/dL (0.2-1.0)
[2019-07-04 02:28] LABS: UA COLLECTION TYPE VOIDED
[2019-07-04 02:35] LABS: BACTERIA,URINE 3+ /HPF (Neg); MUCUS STRANDS NONE SEEN /LPF (Neg); RBC,URINE 0-2 /HPF (0-2); SQUAMOUS EPITHELIAL CELL,UR FEW /LPF (FEW); TRIPLE PHOSPHATE CRYST 1+ /HPF (NEGATIVE); WBC,URINE TNTC /HPF (0-4)
[2019-07-04 06:06] LABS: BASOPHILS % (AUTO) 0.6 % (0-1); EOSINOPHILS # (AUTO) 0.2 X10'3 (0-0.9); EOSINOPHILS % (AUTO) 4.2 % (0-6); HEMATOCRIT 32.2 % (35.0-45.0); HEMOGLOBIN 10.9 g/dl (12.0-16.0); LYMPHOCYTES # (AUTO) 1.4 X10'3 (1.1-4.8); LYMPHOCYTES % (AUTO) 33.3 % (21-51); MEAN CORPUSCULAR HEMOGLOBIN 34.8 PG (27.0-31.0); MEAN CORPUSCULAR HGB CONC 33.9 g/dL (33.0-36.5); MEAN CORPUSCULAR VOLUME 102.5 FL (78-98); MEAN PLATELET VOLUME 7.6 FL (7.4-10.4); MONOCYTES # (AUTO) 0.5 X10'3 (0-0.9); MONOCYTES % (AUTO) 12.7 % (2-12); NEUTROPHILS % (AUTO) 49.2 % (42-75); PLATELET COUNT 184 X10'3 (140-440); RED BLOOD COUNT 3.14 X10'6 (4.20-5.60); RED CELL DISTRIBUTION WIDTH 17.3 % (11.5-14.5); WHITE BLOOD COUNT 4.1 X10'3 (4.5-11.0)
[2019-07-04 06:10] VITALS: BP 141/65
[2019-07-04 06:24] LABS: ALANINE AMINOTRANSFERASE 18 U/L (12-78); ALBUMIN 2.3 G/DL (3.4-5.0); ALBUMIN/GLOBULIN RATIO 0.5 (1.1-1.5); ALKALINE PHOSPHATASE 121 IU/L (46-116); ANION GAP 2 (8-16); ASPARTATE AMINO TRANSFERASE 22 U/L (10-37); BILIRUBIN,TOTAL 0.2 MG/DL (0.1-1.0); BLOOD UREA NITROGEN 17 MG/DL (7-18); BUN/CREATININE RATIO 13.9 (6.6-38.0); CALCIUM 8.5 MG/DL (8.5-10.1); CHLORIDE 113 MMOL/L (99-107); CREATININE 1.22 MG/DL (0.40-0.90); GLUCOSE 92 MG/DL (70-104); MAGNESIUM 2.1 MG/DL (1.5-2.4); PHOSPHORUS 3.4 MG/DL (2.3-4.5); POTASSIUM 3.9 MMOL/L (3.5-5.1); SODIUM 147 MMOL/L (135-145); TOTAL CARBON DIOXIDE 31.6 MMOL/L (24-32); eGFR 43 ML/MIN
[2019-07-04] MEDS ORDERED: CefTRIAXone/D5W-Rocephin 1gm 50 ML IV ONE (06:25)
--- NOTE | 2019-07-04 06:40 | NUR ---
Patient in room ORTHO 4008. I have received report from Shannan RANKIN and had the opportunity to ask questions and assume patient care.
--- NOTE | 2019-07-04 06:45 | NUR ---
REPORT GIVEN TO TAYO
[2019-07-04] MEDS: levoTHYROXINE 112mcg tablet PO SCH (07:59)
[2019-07-04] MEDS: furosemide 20MG tablet PO SCH (07:59)
[2019-07-04] MEDS: metoprolol tartrate 25mg tablet PO SCH ×2 (08:00→20:35)
[2019-07-04] MEDS: apixaban 5mg tablet PO SCH ×2 (08:00→20:35)
[2019-07-04] MEDS: K and/or MAG REPLACEMENT MC SCH ×2 (08:00→20:00)
[2019-07-04] MEDS: docusate sod 100mg capsule PO SCH ×2 (08:00→20:35)
[2019-07-04] MEDS: MIRABEGRON PO SCH (08:00)
[2019-07-04] MEDS ORDERED: buproprion 150mg XL (24-hour) tablet PO SCH (08:00)
[2019-07-04] MEDS: levoTHYROXINE 25mcg tablet PO SCH (08:00)
[2019-07-04] MEDS ORDERED: HYDROcodone/acetaminophen 10/325mg tab PO ONE (08:10)
[2019-07-04 10:00] VITALS: BP 133/68
--- NOTE | 2019-07-04 10:41 | NUR ---
Pt with low Maykel of 12. Per physical assessment pt with BLE 4+ severe edema and bilat ankle 2+ mild edema however skin is intact. Pt currently with 100% PO intake on CHO controlled diet. No nutrition intervention warranted at this time. Will continue to follow. Addendum: 07/04/19 at [address] Amended: Links added.
[2019-07-04] MEDS: CefTRIAXone/D5W-Rocephin 1gm 50 ML IV SCH (12:10)
[2019-07-04] MEDS: nystatin 15 GM powder TP SCH ×2 (12:42→20:35)
[2019-07-04] MEDS: HYDROcodone/acetaminophen 10/325mg tab PO PRN ×3 (12:42→22:02)
[2019-07-04] MEDS ORDERED: BUPR-72 PO (13:18)
[2019-07-04] MEDS: buPROPion SR 150mg tablet PO SCH ×2 (14:41→20:35)
[2019-07-04 18:00] VITALS: BP 147/88
--- NOTE | 2019-07-04 18:41 | NUR ---
Problems reprioritized. Patient report given, questions answered & plan of care reviewed with Viki Dunaway
--- NOTE | 2019-07-04 18:42 | NUR ---
Patient in room ORTHO 4008. I have received report from Viki Verma RN and had the opportunity to ask questions and assume patient care.
[2019-07-04] MEDS: famotidine 20mg tablet PO SCH (20:35)
[2019-07-04 22:00] VITALS: BP 153/89
[2019-07-04] MEDS: magnesium hydroxide 30ml (MOM) UD suspension PO PRN (22:02)
[2019-07-05 05:00] VITALS: BP 145/80
--- NOTE | 2019-07-05 06:30 | NUR ---
Patient in room ORTHO 4008. I have received report from MASSIEL CR and had the opportunity to ask questions and assume patient care.
--- NOTE | 2019-07-05 06:35 | NUR ---
Problems reprioritized. Patient report given, questions answered & plan of care reviewed with MASSIEL Maynard.
[2019-07-05 06:41] LABS: BASOPHILS % (AUTO) 0.8 % (0-1); EOSINOPHILS # (AUTO) 0.1 X10'3 (0-0.9); EOSINOPHILS % (AUTO) 3.3 % (0-6); HEMATOCRIT 34.4 % (35.0-45.0); HEMOGLOBIN 11.6 g/dl (12.0-16.0); LYMPHOCYTES # (AUTO) 1.3 X10'3 (1.1-4.8); LYMPHOCYTES % (AUTO) 29.9 % (21-51); MEAN CORPUSCULAR HEMOGLOBIN 34.6 PG (27.0-31.0); MEAN CORPUSCULAR HGB CONC 33.8 g/dL (33.0-36.5); MEAN CORPUSCULAR VOLUME 102.6 FL (78-98); MEAN PLATELET VOLUME 7.7 FL (7.4-10.4); MONOCYTES # (AUTO) 0.5 X10'3 (0-0.9); MONOCYTES % (AUTO) 10.4 % (2-12); NEUTROPHILS # (AUTO) 2.4 X10'3 (1.8-7.7); NEUTROPHILS % (AUTO) 55.6 % (42-75); PLATELET COUNT 189 X10'3 (140-440); RED BLOOD COUNT 3.35 X10'6 (4.20-5.60); RED CELL DISTRIBUTION WIDTH 17.4 % (11.5-14.5); WHITE BLOOD COUNT 4.4 X10'3 (4.5-11.0)
[2019-07-05 06:53] LABS: ALANINE AMINOTRANSFERASE 21 U/L (12-78); ALBUMIN 2.6 G/DL (3.4-5.0); ALBUMIN/GLOBULIN RATIO 0.5 (1.1-1.5); ALKALINE PHOSPHATASE 131 IU/L (46-116); ANION GAP 6 (8-16); ASPARTATE AMINO TRANSFERASE 24 U/L (10-37); BILIRUBIN,TOTAL 0.3 MG/DL (0.1-1.0); BLOOD UREA NITROGEN 16 MG/DL (7-18); BUN/CREATININE RATIO 13.8 (6.6-38.0); CALCIUM 8.5 MG/DL (8.5-10.1); CHLORIDE 109 MMOL/L (99-107); CREATININE 1.16 MG/DL (0.40-0.90); GLUCOSE 89 MG/DL (70-104); PHOSPHORUS 3.2 MG/DL (2.3-4.5); POTASSIUM 3.9 MMOL/L (3.5-5.1); SODIUM 147 MMOL/L (135-145); TOTAL CARBON DIOXIDE 31.9 MMOL/L (24-32); TOTAL PROTEIN 7.6 G/DL (6.4-8.2); eGFR 46 ML/MIN
[2019-07-05] MEDS: K and/or MAG REPLACEMENT MC SCH ×2 (07:32→20:00)
[2019-07-05] MEDS: apixaban 5mg tablet PO SCH ×2 (08:00→19:38)
[2019-07-05] MEDS: MIRABEGRON PO SCH (08:00)
--- NOTE | 2019-07-05 08:04 | NUR ---
CLEANED AND TOOK PIC OF PT PANNUS, PIC IN CHART
[2019-07-05] MEDS: docusate sod 100mg capsule PO SCH ×2 (09:58→19:38)
[2019-07-05 10:00] VITALS: BP 121/57
[2019-07-05] MEDS: furosemide 20MG tablet PO SCH (10:00)
[2019-07-05] MEDS: levoTHYROXINE 112mcg tablet PO SCH (10:01)
[2019-07-05] MEDS: metoprolol tartrate 25mg tablet PO SCH ×2 (10:01→19:39)
[2019-07-05] MEDS: buPROPion SR 150mg tablet PO SCH ×2 (10:02→19:38)
[2019-07-05] MEDS: HYDROcodone/acetaminophen 10/325mg tab PO PRN ×2 (10:03→22:48)
[2019-07-05] MEDS: CefTRIAXone/D5W-Rocephin 1gm 50 ML IV SCH (10:04)
[2019-07-05] MEDS: levoTHYROXINE 25mcg tablet PO SCH (10:06)
[2019-07-05] MEDS: nystatin 15 GM powder TP SCH ×3 (10:14→19:47)
--- NOTE | 2019-07-05 12:20 | NUR ---
Page Sent PAGER ID: [phone] MESSAGE: DAVE [phone]-RE: ALKA ANN [id number]...PT REFUSED ELIQUIS, IT GIVES HEADAHCE, PT STATES SHE TAKES WARFARIN.
[2019-07-05] MEDS ORDERED: DESMOPRESSIN 0.1 MG/ML IH SCH (12:39)
--- NOTE | 2019-07-05 14:21 | NUR ---
Page Sent PAGER ID: [phone] MESSAGE: DAVE [phone]-RE: ALKA ANN [phone]...PT IS SOBBING IN BED, STATES SHES VERY ITCHY, CAN I GET AN ORDER FOR BENEDRYL?
[2019-07-05] MEDS ORDERED: diphenhydrAMINE 25mg capsule PO PRN (14:25)
[2019-07-05] MEDS: magnesium hydroxide 30ml (MOM) UD suspension PO PRN (17:34)
[2019-07-05 18:00] VITALS: BP 104/71
--- NOTE | 2019-07-05 18:15 | NUR ---
Problems reprioritized. Patient report given, questions answered & plan of care reviewed with MASSIEL CHAUDHRY.
[2019-07-05] MEDS: DESMOPRESSIN 0.1 MG/ML IH SCH (19:39)
[2019-07-05] MEDS: famotidine 20mg tablet PO SCH (19:47)
[2019-07-05 22:00] VITALS: BP 179/99
[2019-07-05 23:25] VITALS: BP 148/62
[2019-07-06] MEDS: HYDROcodone/acetaminophen 10/325mg tab PO PRN ×2 (03:24→07:47)
[2019-07-06 06:00] VITALS: BP 152/77
[2019-07-06 07:01] LABS: BASOPHILS % (AUTO) 0.7 % (0-1); EOSINOPHILS # (AUTO) 0.1 X10'3 (0-0.9); EOSINOPHILS % (AUTO) 2.2 % (0-6); HEMATOCRIT 34.9 % (35.0-45.0); HEMOGLOBIN 11.7 g/dl (12.0-16.0); LYMPHOCYTES # (AUTO) 1.3 X10'3 (1.1-4.8); LYMPHOCYTES % (AUTO) 27.1 % (21-51); MEAN CORPUSCULAR HEMOGLOBIN 34.2 PG (27.0-31.0); MEAN CORPUSCULAR HGB CONC 33.6 g/dL (33.0-36.5); MEAN CORPUSCULAR VOLUME 101.6 FL (78-98); MEAN PLATELET VOLUME 8.1 FL (7.4-10.4); MONOCYTES # (AUTO) 0.5 X10'3 (0-0.9); NEUTROPHILS # (AUTO) 2.9 X10'3 (1.8-7.7); PLATELET COUNT 190 X10'3 (140-440); RED BLOOD COUNT 3.44 X10'6 (4.20-5.60); RED CELL DISTRIBUTION WIDTH 17.8 % (11.5-14.5)
[2019-07-06 07:11] LABS: ALANINE AMINOTRANSFERASE 18 U/L (12-78); ALBUMIN 2.5 G/DL (3.4-5.0); ALBUMIN/GLOBULIN RATIO 0.5 (1.1-1.5); ALKALINE PHOSPHATASE 129 IU/L (46-116); ANION GAP 6 (8-16); ASPARTATE AMINO TRANSFERASE 21 U/L (10-37); BILIRUBIN,TOTAL 0.4 MG/DL (0.1-1.0); BLOOD UREA NITROGEN 11 MG/DL (7-18); BUN/CREATININE RATIO 10.3 (6.6-38.0); CALCIUM 8.3 MG/DL (8.5-10.1); CHLORIDE 109 MMOL/L (99-107); CREATININE 1.07 MG/DL (0.40-0.90); GLUCOSE 84 MG/DL (70-104); MAGNESIUM 1.8 MG/DL (1.5-2.4); POTASSIUM 3.6 MMOL/L (3.5-5.1); SODIUM 144 MMOL/L (135-145); TOTAL CARBON DIOXIDE 29.5 MMOL/L (24-32); TOTAL PROTEIN 7.5 G/DL (6.4-8.2); eGFR 50 ML/MIN
[2019-07-06] MEDS: K and/or MAG REPLACEMENT MC SCH ×2 (07:38→20:00)
[2019-07-06] MEDS: apixaban 5mg tablet PO SCH ×2 (07:46→20:48)
[2019-07-06] MEDS: metoprolol tartrate 25mg tablet PO SCH ×2 (07:46→20:49)
[2019-07-06] MEDS: docusate sod 100mg capsule PO SCH ×2 (07:46→20:00)
[2019-07-06] MEDS: CefTRIAXone/D5W-Rocephin 1gm 50 ML IV SCH (07:46)
[2019-07-06] MEDS: levoTHYROXINE 112mcg tablet PO SCH (07:46)
[2019-07-06] MEDS: furosemide 20MG tablet PO SCH (07:46)
[2019-07-06] MEDS: levoTHYROXINE 25mcg tablet PO SCH (07:47)
[2019-07-06] MEDS: buPROPion SR 150mg tablet PO SCH ×2 (07:47→20:48)
[2019-07-06 10:00] VITALS: BP 148/91
[2019-07-06] MEDS: mirabegron 25mg ER tablet PO SCH (14:28)
[2019-07-06] MEDS ORDERED: levoFLOXACIN 500mg tablet PO ONE (15:30)
[2019-07-06] MEDS: nitrofurantoin macrocrystal 100mg capsule PO SCH ×2 (16:09→20:00)
[2019-07-06 18:00] VITALS: BP 180/112
--- NOTE | 2019-07-06 18:04 | NUR ---
Problems reprioritized. Patient report given, questions answered & plan of care reviewed with Leilani RANKIN.
[2019-07-06] MEDS: famotidine 20mg tablet PO SCH (20:48)
[2019-07-06] MEDS: lactobacillus rhamnosus 10,000 MMU CELLS/CAPSULE PO SCH (20:48)
[2019-07-06] MEDS: nystatin 15 GM powder TP SCH (20:49)
[2019-07-06] MEDS: DESMOPRESSIN 0.1 MG/ML IH SCH (20:51)
[2019-07-06 22:00] VITALS: BP 169/87
[2019-07-07] MEDS: nitrofurantoin macrocrystal 100mg capsule PO SCH ×2 (02:30→08:41)
[2019-07-07 06:00] VITALS: BP 166/86
[2019-07-07 07:49] LABS: BASOPHILS % (AUTO) 0.3 % (0-1); EOSINOPHILS # (AUTO) 0.2 X10'3 (0-0.9); EOSINOPHILS % (AUTO) 2.2 % (0-6); HEMATOCRIT 38.4 % (35.0-45.0); HEMOGLOBIN 13.1 g/dl (12.0-16.0); LYMPHOCYTES # (AUTO) 1.8 X10'3 (1.1-4.8); LYMPHOCYTES % (AUTO) 26.6 % (21-51); MEAN CORPUSCULAR HEMOGLOBIN 34.7 PG (27.0-31.0); MEAN CORPUSCULAR VOLUME 101.9 FL (78-98); MEAN PLATELET VOLUME 7.9 FL (7.4-10.4); MONOCYTES # (AUTO) 0.6 X10'3 (0-0.9); MONOCYTES % (AUTO) 8.5 % (2-12); NEUTROPHILS # (AUTO) 4.2 X10'3 (1.8-7.7); NEUTROPHILS % (AUTO) 62.4 % (42-75); PLATELET COUNT 219 X10'3 (140-440); RED BLOOD COUNT 3.77 X10'6 (4.20-5.60); RED CELL DISTRIBUTION WIDTH 17.4 % (11.5-14.5); WHITE BLOOD COUNT 6.7 X10'3 (4.5-11.0)
[2019-07-07 08:12] LABS: ALANINE AMINOTRANSFERASE 34 U/L (12-78); ALBUMIN 2.8 G/DL (3.4-5.0); ALBUMIN/GLOBULIN RATIO 0.5 (1.1-1.5); ALKALINE PHOSPHATASE 148 IU/L (46-116); ANION GAP 13 (8-16); ASPARTATE AMINO TRANSFERASE 44 U/L (10-37); BILIRUBIN,TOTAL 0.4 MG/DL (0.1-1.0); BLOOD UREA NITROGEN 14 MG/DL (7-18); BUN/CREATININE RATIO 12.7 (6.6-38.0); CALCIUM 8.7 MG/DL (8.5-10.1); CHLORIDE 103 MMOL/L (99-107); GLUCOSE 91 MG/DL (70-104); MAGNESIUM 1.9 MG/DL (1.5-2.4); PHOSPHORUS 3.2 MG/DL (2.3-4.5); POTASSIUM 3.9 MMOL/L (3.5-5.1); SODIUM 142 MMOL/L (135-145); TOTAL CARBON DIOXIDE 26.4 MMOL/L (24-32); TOTAL PROTEIN 8.5 G/DL (6.4-8.2); eGFR 49 ML/MIN
[2019-07-07] MEDS: K and/or MAG REPLACEMENT MC SCH (08:23)
[2019-07-07] MEDS: levoTHYROXINE 112mcg tablet PO SCH (08:40)
[2019-07-07] MEDS: levoTHYROXINE 25mcg tablet PO SCH (08:40)
[2019-07-07] MEDS: furosemide 20MG tablet PO SCH (08:41)
[2019-07-07] MEDS: apixaban 5mg tablet PO SCH (08:41)
[2019-07-07] MEDS: lactobacillus rhamnosus 10,000 MMU CELLS/CAPSULE PO SCH (08:41)
[2019-07-07] MEDS: metoprolol tartrate 25mg tablet PO SCH (08:41)
[2019-07-07] MEDS: docusate sod 100mg capsule PO SCH (08:41)
[2019-07-07] MEDS: HYDROcodone/acetaminophen 5mg/325mg tablet PO PRN (08:44)
[2019-07-07] MEDS: buPROPion SR 150mg tablet PO SCH (08:49)
[2019-07-07] MEDS: nystatin 15 GM powder TP SCH (08:49)
[2019-07-07] MEDS: mirabegron 25mg ER tablet PO SCH (08:49)
[2019-07-07 10:00] VITALS: BP 130/67
[2019-07-07] MEDS ORDERED: levoFLOXACIN 500mg tablet PO SCH (11:00)
== END 2019-07-07 12:00 | DRG 91 ==
LOC: ER 15:29 → ED HOLD 20:01 → ORTHO 4S 21:20 → OBSVTOIN 07-04 16:37
PROVIDERS: ADMIT Family Medicine; ATTEND Family Medicine
DX: G92 Toxic encephalopathy (principal); N17.0 Acute kidney failure with tubular necrosis; I13.0 Hypertensive heart and chronic kidney disease with heart failure and stage 1 through stage 4 chronic kidney disease, or unspecified chronic kidney disease; N39.0 Urinary tract infection, site not specified; Z68.43 Body mass index [BMI] 50.0-59.9, adult; L29.9 Pruritus, unspecified; J44.9 Chronic obstructive pulmonary disease, unspecified; E11.22 Type 2 diabetes mellitus with diabetic chronic kidney disease; N18.9 Chronic kidney disease, unspecified; E78.00 Pure hypercholesterolemia, unspecified; I48.91 Unspecified atrial fibrillation; I50.9 Heart failure, unspecified; E05.90 Thyrotoxicosis, unspecified without thyrotoxic crisis or storm; F32.9 Major depressive disorder, single episode, unspecified; F41.9 Anxiety disorder, unspecified; G89.29 Other chronic pain; K21.9 Gastro-esophageal reflux disease without esophagitis; E03.9 Hypothyroidism, unspecified; E66.01 Morbid (severe) obesity due to excess calories; E78.5 Hyperlipidemia, unspecified; R29.6 Repeated falls; W18.39XA Other fall on same level, initial encounter; M54.5 Low back pain; Y93.89 Activity, other specified; Y99.8 Other external cause status; Y92.009 Unspecified place in unspecified non-institutional (private) residence as the place of occurrence of the external cause; Z90.710 Acquired absence of both cervix and uterus; Z88.8 Allergy status to other drugs, medicaments and biological substances; Z79.899 Other long term (current) drug therapy
CPT/HCPCS: 36415; 36600; 71045; 72125; 72131; 80053; 80305; 80320; 81001; 82140; 82803; 82948; 83735; 84100; 84484; 85018; 85025; 85610; 85730; 87077; 87081; 87088; 87186; 93005; 94760; 97110; 97116; 97161; 97530; G0378; J0696; J2270; Q0163

== ENCOUNTER 2019-08-16 20:06 | Emergency (ER) | payer MEDICARE, MEDICAID ==
[~2019-08-16] VITALS: Ht 160 cm; Wt 145.0 kg
[~2019-08-16 20:06] MED LIST changes: +BUPR-72 PO; -BUPR150T6 PO; -BUPR75TA8 PO; +HYDR-3686 PO
[2019-08-16 20:14] VITALS: BP 171/92
[2019-08-16] MEDS ORDERED: HYDROcodone/acetaminophen 10/325mg tab PO ONE ×2 (21:05→21:25)
== END 2019-08-16 22:16 | disposition home or self-care (01) ==
LOC: ER 20:06
DX: S52.501A Unspecified fracture of the lower end of right radius, initial encounter for closed fracture (principal); I48.91 Unspecified atrial fibrillation; I50.9 Heart failure, unspecified; E78.00 Pure hypercholesterolemia, unspecified; J44.9 Chronic obstructive pulmonary disease, unspecified; I13.0 Hypertensive heart and chronic kidney disease with heart failure and stage 1 through stage 4 chronic kidney disease, or unspecified chronic kidney disease; E11.22 Type 2 diabetes mellitus with diabetic chronic kidney disease; N18.9 Chronic kidney disease, unspecified; G89.29 Other chronic pain; F41.9 Anxiety disorder, unspecified; F32.9 Major depressive disorder, single episode, unspecified; Z86.718 Personal history of other venous thrombosis and embolism; Z90.710 Acquired absence of both cervix and uterus; Z98.51 Tubal ligation status; Z98.890 Other specified postprocedural states; Z60.2 Problems related to living alone; Z88.8 Allergy status to other drugs, medicaments and biological substances; Z79.01 Long term (current) use of anticoagulants; Z79.899 Other long term (current) drug therapy; W18.39XA Other fall on same level, initial encounter; Y93.89 Activity, other specified; Y92.89 Other specified places as the place of occurrence of the external cause; Y99.8 Other external cause status
CPT/HCPCS: 29105; 29125; 73110; 99283

== ENCOUNTER 2019-09-12 13:23 | Emergency (ER) | payer MEDICARE, MEDICAID ==
[~2019-09-12] VITALS: Ht 160 cm; Wt 154.6 kg
--- NOTE | 2019-09-12 14:58 | NUR ---
patient on bed awake,no needs at this time.
[2019-09-12 15:46] VITALS: BP 126/77
== END 2019-09-12 15:46 | disposition home or self-care (01) ==
LOC: ER 13:24
DX: S00.83XA Contusion of other part of head, initial encounter (principal); S60.221A Contusion of right hand, initial encounter; S09.90XA Unspecified injury of head, initial encounter; I48.91 Unspecified atrial fibrillation; I13.0 Hypertensive heart and chronic kidney disease with heart failure and stage 1 through stage 4 chronic kidney disease, or unspecified chronic kidney disease; E11.22 Type 2 diabetes mellitus with diabetic chronic kidney disease; N18.9 Chronic kidney disease, unspecified; I50.9 Heart failure, unspecified; E78.00 Pure hypercholesterolemia, unspecified; J44.9 Chronic obstructive pulmonary disease, unspecified; K21.9 Gastro-esophageal reflux disease without esophagitis; G89.29 Other chronic pain; F41.9 Anxiety disorder, unspecified; F32.9 Major depressive disorder, single episode, unspecified; Z86.718 Personal history of other venous thrombosis and embolism; Z90.710 Acquired absence of both cervix and uterus; Z98.51 Tubal ligation status; Z98.890 Other specified postprocedural states; Z60.2 Problems related to living alone; Z88.8 Allergy status to other drugs, medicaments and biological substances; Z79.01 Long term (current) use of anticoagulants; Z79.899 Other long term (current) drug therapy; W18.39XA Other fall on same level, initial encounter; Y93.89 Activity, other specified; Y92.89 Other specified places as the place of occurrence of the external cause; Y99.8 Other external cause status
CPT/HCPCS: 70450; 70486; 73130; 99285

== ENCOUNTER 2019-09-24 18:42 | Emergency (ER) | payer MEDICARE, MEDICAID ==
[~2019-09-24] VITALS: Ht 160 cm; Wt 154.6 kg
[2019-09-24] MEDS ORDERED: acetaminophen 325mg tablet PO ONE (18:55)
--- NOTE | 2019-09-24 19:23 | NUR ---
I spoke with Pt's daughter in the lobby and she reports that the Pt usually transports from Hospital with her [facility] worker who brinigs her electric WC. This individual is out of town. Daughter to call me back with info on how to transport her home (possibly via Transport Service). Pt has orders for a knee immobilizer and then will be transport wait for Discharge.
--- NOTE | 2019-09-24 20:00 | NUR ---
CALLED [facility] FOR TRANSPORT. [facility] REFUSED TRANSPORT DO TO LIABILITY REASONS
--- NOTE | 2019-09-24 20:04 | NUR ---
[facility] REFUSED TO TRANSPORT NOT A CONTRACKTED FACILITY
--- NOTE | 2019-09-24 21:37 | NUR ---
Pt DC ready, awaiting coordination of transport home. VANESSA Lombardi working on this. Pt sleeping.
--- NOTE | 2019-09-24 22:40 | NUR ---
relieving RN for lunch, assisted pt to bedside commode, pt wanted left knee brace off,
--- NOTE | 2019-09-24 22:54 | NUR ---
[facility] at bedside to transport Pt.
[2019-09-24 23:01] VITALS: BP 140/77
== END 2019-09-24 23:04 | disposition home or self-care (01) ==
LOC: ER 18:42
DX: M23.92 Unspecified internal derangement of left knee (principal); E66.01 Morbid (severe) obesity due to excess calories; I48.91 Unspecified atrial fibrillation; E78.00 Pure hypercholesterolemia, unspecified; J44.9 Chronic obstructive pulmonary disease, unspecified; K21.9 Gastro-esophageal reflux disease without esophagitis; I13.0 Hypertensive heart and chronic kidney disease with heart failure and stage 1 through stage 4 chronic kidney disease, or unspecified chronic kidney disease; E11.22 Type 2 diabetes mellitus with diabetic chronic kidney disease; N18.9 Chronic kidney disease, unspecified; I50.9 Heart failure, unspecified; Z68.44 Body mass index [BMI] 60.0-69.9, adult; Z90.710 Acquired absence of both cervix and uterus; Z98.51 Tubal ligation status; Z98.890 Other specified postprocedural states; Z60.2 Problems related to living alone; Z88.8 Allergy status to other drugs, medicaments and biological substances; Z79.01 Long term (current) use of anticoagulants; Z79.899 Other long term (current) drug therapy
CPT/HCPCS: 29505; 73560; 99284

== ENCOUNTER 2019-09-25 15:21 | Emergency (ER) | payer MEDICARE, MEDICAID ==
[~2019-09-25] VITALS: Ht 162.6 cm; Wt 154.6 kg
[2019-09-25 16:19] VITALS: BP 139/89
--- NOTE | 2019-09-25 18:55 | NUR ---
CALLED [facility] AT 18:54 FOR TRANSPORT BACK HOME. NOT AT LVL FOR TRANSPORT MIRI
--- NOTE | 2019-09-25 18:55 | NUR ---
HAN IS HERE AND NEEDING PTS KEYS - PT DOESN'T HAVE HER KEYS. SHE DID THIS SAME THING LAST NIGHT AND THEY HAD TO CALL THE FIRE DEPARTMENT TO OPEN HER APARTMENT.
== END 2019-09-25 19:36 | disposition home or self-care (01) ==
LOC: ER 15:22
DX: M25.562 Pain in left knee (principal); E66.01 Morbid (severe) obesity due to excess calories; Z90.710 Acquired absence of both cervix and uterus; Z98.890 Other specified postprocedural states; Z98.51 Tubal ligation status; Z60.2 Problems related to living alone; Z88.8 Allergy status to other drugs, medicaments and biological substances; Z79.01 Long term (current) use of anticoagulants; Z79.899 Other long term (current) drug therapy
CPT/HCPCS: 99283

== ENCOUNTER 2020-02-14 20:19 | Emergency (ER) | payer MEDICARE, MEDICAID ==
[~2020-02-14] VITALS: Ht 160 cm; Wt 145.0 kg
[~2020-02-14 20:19] MED LIST changes: +BIOT10004 PO; -DESM10SP7 BOTHNARES; -HYDR-3686 PO; +HYDR-4383 PO; -MIRA50TA PO; -OXYC-511 PO; -[UNRECOGNIZED DRUG - CODE] PO
[2020-02-14 21:18] VITALS: BP 153/86
[2020-02-14] MEDS ORDERED: CEPH500C5 PO (22:34)
== END 2020-02-14 23:41 | disposition home or self-care (01) ==
LOC: ER 20:20
DX: I89.0 Lymphedema, not elsewhere classified (principal); I48.91 Unspecified atrial fibrillation; I50.9 Heart failure, unspecified; E78.00 Pure hypercholesterolemia, unspecified; I13.0 Hypertensive heart and chronic kidney disease with heart failure and stage 1 through stage 4 chronic kidney disease, or unspecified chronic kidney disease; J44.9 Chronic obstructive pulmonary disease, unspecified; K21.9 Gastro-esophageal reflux disease without esophagitis; N18.9 Chronic kidney disease, unspecified; E11.22 Type 2 diabetes mellitus with diabetic chronic kidney disease; G89.29 Other chronic pain; F41.9 Anxiety disorder, unspecified; F32.9 Major depressive disorder, single episode, unspecified; Z90.710 Acquired absence of both cervix and uterus; Z98.51 Tubal ligation status; Z98.890 Other specified postprocedural states; Z88.8 Allergy status to other drugs, medicaments and biological substances; Z79.01 Long term (current) use of anticoagulants; Z79.899 Other long term (current) drug therapy
CPT/HCPCS: 99284

== ENCOUNTER 2020-03-15 19:49 | Inpatient (IN) | payer MEDICARE, MEDICAID ==
[~2020-03-15] VITALS: Ht 160 cm; Wt 142.3 kg
--- NOTE | 2020-03-15 20:18 | NUR ---
CHEST X RAY DONE
[2020-03-15 20:41] LABS: BASOPHILS % (AUTO) 0.8 % (0-1); EOSINOPHILS # (AUTO) 0.2 X10'3 (0-0.9); EOSINOPHILS % (AUTO) 3.9 % (0-6); HEMATOCRIT 37.5 % (35.0-45.0); HEMOGLOBIN 12.6 g/dl (12.0-16.0); LYMPHOCYTES # (AUTO) 1.3 X10'3 (1.1-4.8); LYMPHOCYTES % (AUTO) 25.5 % (21-51); MEAN CORPUSCULAR HEMOGLOBIN 36.2 PG (27.0-31.0); MEAN CORPUSCULAR HGB CONC 33.5 g/dL (33.0-36.5); MEAN CORPUSCULAR VOLUME 107.9 FL (78-98); MEAN PLATELET VOLUME 7.3 FL (7.4-10.4); MONOCYTES # (AUTO) 0.6 X10'3 (0-0.9); MONOCYTES % (AUTO) 12.2 % (2-12); NEUTROPHILS % (AUTO) 57.6 % (42-75); PLATELET COUNT 204 X10'3 (140-440); RED BLOOD COUNT 3.48 X10'6 (4.20-5.60); WHITE BLOOD COUNT 5.2 X10'3 (4.5-11.0)
[2020-03-15 20:56] LABS: ALANINE AMINOTRANSFERASE 21 U/L (12-78); ALBUMIN/GLOBULIN RATIO 0.5 (1.1-1.5); ALKALINE PHOSPHATASE 143 IU/L (46-116); ANION GAP 6 (8-16); ASPARTATE AMINO TRANSFERASE 27 U/L (10-37); BILIRUBIN,TOTAL 0.4 MG/DL (0.1-1.0); BLOOD UREA NITROGEN 14 MG/DL (7-18); BUN/CREATININE RATIO 9.7 (6.6-38.0); CALCIUM 8.7 MG/DL (8.5-10.1); CHLORIDE 101 MMOL/L (99-107); CREATININE 1.44 MG/DL (0.40-0.90); GLUCOSE 131 MG/DL (70-104); POTASSIUM 4.2 MMOL/L (3.5-5.1); SODIUM 139 MMOL/L (135-145); TOTAL CARBON DIOXIDE 31.6 MMOL/L (24-32); TOTAL PROTEIN 8.8 G/DL (6.4-8.2); eGFR 36 ML/MIN
--- NOTE | 2020-03-15 21:13 | NUR ---
PT DESATTO 88-89 % WHILE ASLEEP WITH INCREASEORK O FBREATHIN G. REPOSITIONED WITHOUT AN INCREASE IN SATURATION PLACE PT ON O2 1.5 LITER N/C
[2020-03-15] MEDS ORDERED: PRIM250T32 PO (23:16)
[2020-03-15] MEDS ORDERED: METO50TA17 PO (23:16)
[2020-03-15] MEDS ORDERED: DILT180C89 PO (23:16)
[2020-03-15] MEDS ORDERED: POTA10TA19 PO (23:16)
[2020-03-15] MEDS ORDERED: BUPR75TA8 PO (23:16)
[2020-03-15] MEDS ORDERED: BUPR150T8 PO (23:16)
[2020-03-15] MEDS ORDERED: FURO-150 PO (23:16)
[2020-03-15] MEDS ORDERED: CEPH-571 PO (23:16)
[2020-03-15] MEDS ORDERED: magnesium 2GM in 50ml NS 50 ML IV PRN (23:25)
[2020-03-15] MEDS ORDERED: acetaminophen 325mg tablet PO PRN ×2 (23:25)
[2020-03-15] MEDS ORDERED: magnesium 4gm in 100ml NS 100 ML IV PRN (23:25)
[2020-03-15] MEDS ORDERED: aminophylline 250mg/10ml inj. IV PRN (23:25)
[2020-03-15] MEDS ORDERED: nitroGLYCERIN 0.4mg SUBLingual tab SL PRN (23:25)
[2020-03-15] MEDS ORDERED: potassium Cl 20 mEq SR tablet PO PRN ×2 (23:25)
[2020-03-15] MEDS ORDERED: HYDROcodone/acetaminophen 5mg/325mg tablet PO PRN (23:25)
[2020-03-15] MEDS ORDERED: ondansetron/PF 4mg/2ml inj IV PRN (23:25)
[2020-03-15] MEDS ORDERED: morphine 2 MG/ML inj. syringe IV PRN (23:25)
[2020-03-15] MEDS ORDERED: regadenoson 0.4mg/5ml syringe IV PRN (23:25)
[2020-03-15] MEDS ORDERED: magnesium Cl slow-release 64mg tablet PO PRN (23:25)
[2020-03-15] MEDS ORDERED: potassium CL 10mEq/100ml bag 100 ML IV PRN ×2 (23:25)
[2020-03-15] MEDS ORDERED: metoprolol tartrate 1mg/ml inj IV PRN (23:25)
[2020-03-15] MEDS ORDERED: ALBUTEROL INHALER 1 PUFF/90 MCG INHALER IH PRN (23:35)
[2020-03-16] VITALS (10 sets, daily range): BP systolic 147–166; BP diastolic 75–81
--- NOTE | 2020-03-16 00:03 | NUR ---
PATIENT STATING THAT SHE WANTS TO GO HOME, THAT SHE CAN "GO HOME AND GET RID OF THE WATER THERE" DR HUYNH CONTACTED, INFORMED THAT PATIENT THAT IF SHE LEAVES IT WILL BE AGAINST MEDICAL ADVISE. PATIENT AGREED TO STAY. GIVEN WARM BLANKETS AND EXTRA PILLOWS POSITIONED FOR COMFORT.
[2020-03-16] MEDS ORDERED: albuterol 2.5 MG/3 ML nebule NEB PRN (00:05)
--- NOTE | 2020-03-16 01:14 | NUR ---
pt transferred to pcu bed in room from [facility].
[2020-03-16 02:27] LABS: BASOPHILS # (AUTO) 0.1 X10'3 (0-0.2); BASOPHILS % (AUTO) 1.3 % (0-1); EOSINOPHILS # (AUTO) 0.3 X10'3 (0-0.9); EOSINOPHILS % (AUTO) 5.4 % (0-6); HEMATOCRIT 36.6 % (35.0-45.0); HEMOGLOBIN 12.3 g/dl (12.0-16.0); LYMPHOCYTES # (AUTO) 1.3 X10'3 (1.1-4.8); LYMPHOCYTES % (AUTO) 27.5 % (21-51); MEAN CORPUSCULAR HGB CONC 33.5 g/dL (33.0-36.5); MEAN CORPUSCULAR VOLUME 107.3 FL (78-98); MEAN PLATELET VOLUME 7.3 FL (7.4-10.4); MONOCYTES # (AUTO) 0.7 X10'3 (0-0.9); MONOCYTES % (AUTO) 14.6 % (2-12); NEUTROPHILS # (AUTO) 2.4 X10'3 (1.8-7.7); NEUTROPHILS % (AUTO) 51.2 % (42-75); PLATELET COUNT 200 X10'3 (140-440); RED BLOOD COUNT 3.41 X10'6 (4.20-5.60); RED CELL DISTRIBUTION WIDTH 18.1 % (11.5-14.5); WHITE BLOOD COUNT 4.6 X10'3 (4.5-11.0)
[2020-03-16 02:42] LABS: ALANINE AMINOTRANSFERASE 19 U/L (12-78); ALBUMIN 2.8 G/DL (3.4-5.0); ALBUMIN/GLOBULIN RATIO 0.5 (1.1-1.5); ALKALINE PHOSPHATASE 135 IU/L (46-116); ANION GAP 7 (8-16); ASPARTATE AMINO TRANSFERASE 25 U/L (10-37); BILIRUBIN,TOTAL 0.3 MG/DL (0.1-1.0); BLOOD UREA NITROGEN 16 MG/DL (7-18); BUN/CREATININE RATIO 10.7 (6.6-38.0); CALCIUM 8.4 MG/DL (8.5-10.1); CHLORIDE 102 MMOL/L (99-107); GLUCOSE 98 MG/DL (70-104); POTASSIUM 4.1 MMOL/L (3.5-5.1); SODIUM 140 MMOL/L (135-145); TOTAL CARBON DIOXIDE 31.3 MMOL/L (24-32); TOTAL PROTEIN 8.4 G/DL (6.4-8.2); eGFR 34 ML/MIN
[2020-03-16 02:45] LABS: MAGNESIUM 2.1 MG/DL (1.5-2.4)
[2020-03-16] MEDS ORDERED: heparin, porcine 5000 units/ml vial SQ SCH (08:00)
[2020-03-16] MEDS: K and/or MAG REPLACEMENT MC SCH ×2 (08:00→19:51)
--- NOTE | 2020-03-16 08:20 | NUR ---
STRESS TEST PERSONNEL HERE TO INJECT PATIENT FOR TEST. PATIENT REFUSES TO COOPERATE AND STATES THAT SHE WANTS TO SPEAK WITH DOCTOR PRIOR TO AGREEING WITH TESTS. STATES SHE DOES NOT KNOW WHY SHE IS BEING ADMITTED AND WANTS TO SEE A DOCTOR "RIGHT NOW". PAGE TO DR. JURADO, WHO IS THE ASSIGNED HOSPITALIST FOR TODAY.
--- NOTE | 2020-03-16 08:35 | NUR ---
DR. JURADO CALLED BACK AND WAS INFORMED OF PATIENT'S REFUSAL TO COOPERATE WITH STRESS TEST UNTIL SHE IS ABLE TO SEE A DOCTOR NOW. DR. JURADO STATES THAT HE IS UNABLE TO COME DOWN HERE TO SEE HER AT THE PRESENT TIME, BUT WILL BE SEEING HER WHEN SHE IS TRANSFERRED UP TO HER INPATIENT ROOM.
[2020-03-16] MEDS: furosemide 10 MG/1 ML 10ml inj IV SCH ×2 (10:16→19:46)
[2020-03-16] MEDS: levoTHYROXINE 25mcg tablet PO SCH (10:16)
[2020-03-16] MEDS: levoTHYROXINE 112mcg tablet PO SCH (10:16)
[2020-03-16] MEDS: buPROPion SR 150mg tablet PO SCH (10:18)
[2020-03-16] MEDS: metoprolol tartrate 50mg tablet PO SCH ×2 (10:18→19:46)
[2020-03-16] MEDS: amiodarone 200mg tablet PO SCH (10:18)
[2020-03-16] MEDS: diltiazem CD 180mg cap (once-daily) PO SCH (10:18)
--- NOTE | 2020-03-16 10:24 | NUR ---
PATIENT STATES SHE WILL COOPERATE WITH TESTING THAT WAS ORDERED. STRESS TEST LAB CALLED AND INFORMED OF THIS.
[2020-03-16] MEDS: apixaban 5mg tablet PO SCH ×2 (10:42→19:46)
--- NOTE | 2020-03-16 11:10 | NUR ---
Nuc Med at bedside to administer medication for stress test. Introduced myself to patient. Pt denies any needs at this time.
--- NOTE | 2020-03-16 12:00 | NUR ---
TRANSFERRED PT TO BEDSIDE COMMODE AND THEN TO WHEELCHAIR FOR NUC MED/LEXISCAN PROCEDURE. 2 PERSON ASSIST, PT ON PORTABLE MONITOR, VSS. O2 3LNC.
--- NOTE | 2020-03-16 12:27 | NUR ---
Pt saturated bed. Bed cleaned and patient to CT.
[2020-03-16] MEDS: NYSTATIN CREAM - 30GM TUBE TP SCH (20:37)
[2020-03-16] MEDS ORDERED: famotidine 20mg tablet PO SCH (21:00)
[2020-03-17 02:00] VITALS: BP 142/73
[2020-03-17 05:49] LABS: BASOPHILS # (AUTO) 0.1 X10'3 (0-0.2); BASOPHILS % (AUTO) 1.1 % (0-1); EOSINOPHILS # (AUTO) 0.2 X10'3 (0-0.9); EOSINOPHILS % (AUTO) 2.8 % (0-6); HEMATOCRIT 34.4 % (35.0-45.0); HEMOGLOBIN 11.6 g/dl (12.0-16.0); LYMPHOCYTES # (AUTO) 1.3 X10'3 (1.1-4.8); MEAN CORPUSCULAR HEMOGLOBIN 36.4 PG (27.0-31.0); MEAN CORPUSCULAR HGB CONC 33.9 g/dL (33.0-36.5); MEAN CORPUSCULAR VOLUME 107.3 FL (78-98); MEAN PLATELET VOLUME 7.3 FL (7.4-10.4); MONOCYTES # (AUTO) 0.7 X10'3 (0-0.9); MONOCYTES % (AUTO) 12.3 % (2-12); NEUTROPHILS # (AUTO) 3.3 X10'3 (1.8-7.7); NEUTROPHILS % (AUTO) 60.8 % (42-75); PLATELET COUNT 196 X10'3 (140-440); RED CELL DISTRIBUTION WIDTH 17.6 % (11.5-14.5); WHITE BLOOD COUNT 5.4 X10'3 (4.5-11.0)
[2020-03-17 06:00] VITALS: BP 144/72
--- NOTE | 2020-03-17 06:00 | NUR ---
Patient in room PCU 3011. I have received report from Alida RANKIN and had the opportunity to ask questions and assume patient care.
[2020-03-17 06:06] LABS: ALANINE AMINOTRANSFERASE 18 U/L (12-78); ALBUMIN 2.4 G/DL (3.4-5.0); ALBUMIN/GLOBULIN RATIO 0.5 (1.1-1.5); ALKALINE PHOSPHATASE 116 IU/L (46-116); ANION GAP 6 (8-16); ASPARTATE AMINO TRANSFERASE 19 U/L (10-37); BILIRUBIN,TOTAL 0.4 MG/DL (0.1-1.0); BLOOD UREA NITROGEN 15 MG/DL (7-18); BUN/CREATININE RATIO 12.8 (6.6-38.0); CALCIUM 8.3 MG/DL (8.5-10.1); CHLORIDE 107 MMOL/L (99-107); CREATININE 1.17 MG/DL (0.40-0.90); GLUCOSE 89 MG/DL (70-104); MAGNESIUM 1.9 MG/DL (1.5-2.4); POTASSIUM 3.7 MMOL/L (3.5-5.1); SODIUM 145 MMOL/L (135-145); TOTAL CARBON DIOXIDE 32.4 MMOL/L (24-32); TOTAL PROTEIN 7.6 G/DL (6.4-8.2); eGFR 45 ML/MIN
--- NOTE | 2020-03-17 06:27 | NUR ---
Problems reprioritized. Patient report given, questions answered & plan of care reviewed with MASSIEL Henson.
[2020-03-17] MEDS: K and/or MAG REPLACEMENT MC SCH (08:00)
[2020-03-17] MEDS: NYSTATIN CREAM - 30GM TUBE TP SCH (08:00)
[2020-03-17] MEDS: furosemide 10 MG/1 ML 10ml inj IV SCH (08:00)
[2020-03-17] MEDS: diltiazem CD 180mg cap (once-daily) PO SCH (08:41)
[2020-03-17] MEDS: levoTHYROXINE 112mcg tablet PO SCH (08:41)
[2020-03-17] MEDS: levoTHYROXINE 25mcg tablet PO SCH (08:41)
[2020-03-17] MEDS: apixaban 5mg tablet PO SCH (08:42)
[2020-03-17] MEDS: amiodarone 200mg tablet PO SCH (08:42)
[2020-03-17] MEDS: buPROPion SR 150mg tablet PO SCH (08:42)
[2020-03-17] MEDS: metoprolol tartrate 50mg tablet PO SCH (08:42)
[2020-03-17] MEDS ORDERED: FLU VACC QS2020-21(6MOS UP)/PF 60 MCG/0.5 ML SYRINGE IMVAC ONE (10:00)
[2020-03-17] MEDS ORDERED: pneumococcal 23-VAL P-sac vacc 25 mcg/0.5ml vial IMVAC ONE (10:00)
[2020-03-17 11:00] VITALS: BP 151/64
--- NOTE | 2020-03-17 11:05 | NUR ---
PAGER ID: [phone] MESSAGE: Re: Roberta Muñiz. room: 3011. DC order not complete concerning medications, DC disposition and anticipated DC date. -Sixto [facility] #[id number] Dr. Torres paged concerning DC order
--- NOTE | 2020-03-17 12:00 | NUR ---
Pt DC'd home with daughter. Pt alert and oriented and vitals WNL upon DC. Per Dr. Torres Pt is stable for DC. IV removed, canula intact. Tele-box removed and returned to tele-tech. DC paperwork printed out and gone over with Pt. Allowed Pt to ask questions concerning DC and then answered them. No new medications for Pt. Pt has appt with demonstrator knitting Dr. Miramontes on 04/14/20 and PCP on at [facility]. Pt's belongings gathered and sent with Pt. Pt wheeled down in own electric wheelchair and left with daughter for home.
== END 2020-03-17 12:36 | disposition home or self-care (01) | DRG 291 ==
LOC: ER 19:50 → ED HOLD 23:21 → PCU 3S 03-16 15:00
PROVIDERS: ADMIT Internal Medicine; ATTEND Internal Medicine
PROC: 4A02XM4 Measurement of Cardiac Total Activity, External Approach (ICD-10-PCS; 2020-03-16)
PROC: 3E073KZ Introduction of Other Diagnostic Substance into Coronary Artery, Percutaneous Approach (ICD-10-PCS; 2020-03-16)
PROC: 3E0234Z Introduction of Serum, Toxoid and Vaccine into Muscle, Percutaneous Approach (ICD-10-PCS; principal; 2020-03-17)
PROC: 3E02340 Introduction of Influenza Vaccine into Muscle, Percutaneous Approach (ICD-10-PCS; 2020-03-17)
DX: I13.0 Hypertensive heart and chronic kidney disease with heart failure and stage 1 through stage 4 chronic kidney disease, or unspecified chronic kidney disease (principal); I50.33 Acute on chronic diastolic (congestive) heart failure; J96.01 Acute respiratory failure with hypoxia; I48.20 Chronic atrial fibrillation, unspecified; Z68.43 Body mass index [BMI] 50.0-59.9, adult; N18.30 Chronic kidney disease, stage 3 unspecified; E03.9 Hypothyroidism, unspecified; E11.22 Type 2 diabetes mellitus with diabetic chronic kidney disease; E66.01 Morbid (severe) obesity due to excess calories; E78.00 Pure hypercholesterolemia, unspecified; E78.5 Hyperlipidemia, unspecified; G89.29 Other chronic pain; I89.0 Lymphedema, not elsewhere classified; J44.9 Chronic obstructive pulmonary disease, unspecified; E05.90 Thyrotoxicosis, unspecified without thyrotoxic crisis or storm; F32.9 Major depressive disorder, single episode, unspecified; R07.89 Other chest pain; F41.9 Anxiety disorder, unspecified; K21.9 Gastro-esophageal reflux disease without esophagitis; M54.9 Dorsalgia, unspecified; Z79.01 Long term (current) use of anticoagulants; Z90.710 Acquired absence of both cervix and uterus; Z23 Encounter for immunization; Z88.8 Allergy status to other drugs, medicaments and biological substances; Z86.718 Personal history of other venous thrombosis and embolism; Z98.51 Tubal ligation status
CPT/HCPCS: 36415; 71045; 78452; 80053; 83735; 83880; 84484; 85025; 87081; 90732; 93005; 93017; 93306; 93308; 94760; 99285; A9500; G0378; J1940; J2785; Q2039

== ENCOUNTER 2020-05-11 17:06 | Emergency (ER) | payer MEDICARE, MEDICAID ==
[~2020-05-11] VITALS: Ht 160 cm; Wt 147.7 kg
[~2020-05-11 17:06] MED LIST changes: -BUPR-72 PO; +BUPR150T8 PO; +BUPR75TA8 PO; +DILT180C89 PO; -HYDR-4383 PO; -METO25TA6 PO; +METO50TA17 PO; -POTA10TA15 PO; +POTA10TA19 PO; +PRIM250T32 PO
--- NOTE | 2020-05-11 18:30 | NUR ---
Assumed care of pt after receiving report. Pt resting on g[place] awaiting medical eval.
[2020-05-11 19:13] LABS: CLARITY,URINE CLEAR (Clear); COLOR,URINE YELLOW (Yellow); GLUCOSE, URINE NEGATIVE (Neg); KETONES,URINE NEGATIVE (Neg); LEUKOCYTE ESTERASE ,URINE MODERATE (Neg); NITRITES, URINE NEGATIVE (Neg); OCCULT BLOOD,URINE SMALL (Neg); PH,URINE 5.5 (4.8-8.0); PROTEIN,URINE NEGATIVE (Neg); UROBILINOGEN,URINE 0.2 E.U/dL (0.2-1.0)
[2020-05-11 19:14] LABS: UA COLLECTION TYPE STRAIGHT CATH
[2020-05-11] MEDS ORDERED: CEFD300C3 PO (19:15)
[2020-05-11] MEDS: ciprofloxacin 250mg tablet PO ONE (19:20)
[2020-05-11 19:21] LABS: BACTERIA,URINE 1+ /HPF (Neg); RBC,URINE 0-2 /HPF (0-2); SQUAMOUS EPITHELIAL CELL,UR FEW /LPF (FEW)
[2020-05-11 19:22] LABS: RENAL CELLS, URINE FEW /HPF; WBC CLUMPS,URINE MODERATE /HPF (NEGATIVE)
--- NOTE | 2020-05-11 19:23 | NUR ---
PT CALLED DAUGHTER TANA FOR A RIDE HOME. PT DAUGHTER INFORMED PT THAT SHE MAY BE ALLERGIC TO "PARTS OF CIPRO", THE MEDICATION RECENTLY ADMINISTERED TO PT. PT DENIES ANY CURRENT S/S ALLERGIC REACTION. MINDI GUTIERREZ MADE AWARE AND WILL CONTINUE TO MONITOR PT FOR S/S ALLERGIC REACTION.
--- NOTE | 2020-05-11 20:28 | NUR ---
PT RESTING IN NO DISTRESS ON GURNEY AWAITING DAUGHTER FOR RIDE HOME.
[2020-05-11 21:22] VITALS: BP 187/82
== END 2020-05-11 21:23 | disposition home or self-care (01) ==
LOC: ER 17:07
DX: N39.0 Urinary tract infection, site not specified (principal); I48.91 Unspecified atrial fibrillation; I12.9 Hypertensive chronic kidney disease with stage 1 through stage 4 chronic kidney disease, or unspecified chronic kidney disease; E11.22 Type 2 diabetes mellitus with diabetic chronic kidney disease; N18.9 Chronic kidney disease, unspecified; J44.9 Chronic obstructive pulmonary disease, unspecified; K21.9 Gastro-esophageal reflux disease without esophagitis; E05.90 Thyrotoxicosis, unspecified without thyrotoxic crisis or storm; G89.29 Other chronic pain; F41.9 Anxiety disorder, unspecified; F32.9 Major depressive disorder, single episode, unspecified; Z87.440 Personal history of urinary (tract) infections; Z86.718 Personal history of other venous thrombosis and embolism; Z90.710 Acquired absence of both cervix and uterus; Z98.51 Tubal ligation status; Z98.890 Other specified postprocedural states; Z88.8 Allergy status to other drugs, medicaments and biological substances; Z79.2 Long term (current) use of antibiotics; Z79.899 Other long term (current) drug therapy
CPT/HCPCS: 81001; 87077; 87088; 87186; 99284

== ENCOUNTER 2020-05-14 14:17 | Emergency (ER) | payer MEDICARE, MEDICAID ==
[~2020-05-14] VITALS: Ht 160 cm; Wt 168.2 kg
[~2020-05-14 14:17] MED LIST changes: +CEFD300C3 PO
[2020-05-14] MEDS ORDERED: normal saline 1000ML IV soln IV ONE (15:05)
[2020-05-14] MEDS ORDERED: vancomycin/NS 1 GM ADD-VANTAGE 250 ML IV ONE (15:05)
[2020-05-14 15:48] LABS: BASOPHILS # (AUTO) 0.1 X10'3 (0-0.2); BASOPHILS % (AUTO) 1.3 % (0-1); EOSINOPHILS # (AUTO) 0.1 X10'3 (0-0.9); HEMATOCRIT 38.6 % (35.0-45.0); HEMOGLOBIN 12.9 g/dl (12.0-16.0); LYMPHOCYTES # (AUTO) 1.3 X10'3 (1.1-4.8); LYMPHOCYTES % (AUTO) 32.8 % (21-51); MEAN CORPUSCULAR HEMOGLOBIN 37.1 PG (27.0-31.0); MEAN CORPUSCULAR HGB CONC 33.4 g/dL (33.0-36.5); MEAN CORPUSCULAR VOLUME 111.1 FL (78-98); MEAN PLATELET VOLUME 8.8 FL (7.4-10.4); MONOCYTES # (AUTO) 0.6 X10'3 (0-0.9); MONOCYTES % (AUTO) 13.8 % (2-12); NEUTROPHILS % (AUTO) 49.1 % (42-75); PLATELET COUNT 134 X10'3 (140-440); RED BLOOD COUNT 3.47 X10'6 (4.20-5.60); RED CELL DISTRIBUTION WIDTH 18.1 % (11.5-14.5)
[2020-05-14 16:03] LABS: ALANINE AMINOTRANSFERASE 30 U/L (12-78); ALBUMIN 3.1 G/DL (3.4-5.0); ALBUMIN/GLOBULIN RATIO 0.6 (1.1-1.5); ALKALINE PHOSPHATASE 137 IU/L (46-116); ANION GAP 5 (8-16); ASPARTATE AMINO TRANSFERASE 25 U/L (10-37); BILIRUBIN,TOTAL 0.3 MG/DL (0.1-1.0); BLOOD UREA NITROGEN 34 MG/DL (7-18); BUN/CREATININE RATIO 21.7 (6.6-38.0); CALCIUM 8.6 MG/DL (8.5-10.1); CHLORIDE 103 MMOL/L (99-107); CREATININE 1.57 MG/DL (0.40-0.90); GLUCOSE 118 MG/DL (70-104); MAGNESIUM 2.3 MG/DL (1.5-2.4); POTASSIUM 4.5 MMOL/L (3.5-5.1); SODIUM 142 MMOL/L (135-145); TOTAL CARBON DIOXIDE 33.7 MMOL/L (24-32); TOTAL PROTEIN 8.5 G/DL (6.4-8.2); eGFR 32 ML/MIN
[2020-05-14 16:14] LABS: ANISOCYTOSIS 2+; LARGE PLATELETS FEW; PLATELET ESTIMATE DECREASED; POIKILOCYTOSIS FEW
[2020-05-14] MEDS ORDERED: LINE600T11 PO (16:57)
[2020-05-14] MEDS ORDERED: linezolid 600mg tablet PO ONE (17:00)
[2020-05-14 18:02] VITALS: BP 159/80
== END 2020-05-14 18:54 | disposition home or self-care (01) ==
LOC: ER 14:18
DX: N39.0 Urinary tract infection, site not specified (principal); I44.7 Left bundle-branch block, unspecified; I48.91 Unspecified atrial fibrillation; E66.01 Morbid (severe) obesity due to excess calories; I13.0 Hypertensive heart and chronic kidney disease with heart failure and stage 1 through stage 4 chronic kidney disease, or unspecified chronic kidney disease; E11.22 Type 2 diabetes mellitus with diabetic chronic kidney disease; N18.9 Chronic kidney disease, unspecified; I50.9 Heart failure, unspecified; E78.00 Pure hypercholesterolemia, unspecified; J44.9 Chronic obstructive pulmonary disease, unspecified; K21.9 Gastro-esophageal reflux disease without esophagitis; G89.29 Other chronic pain; F41.9 Anxiety disorder, unspecified; F32.9 Major depressive disorder, single episode, unspecified; E05.90 Thyrotoxicosis, unspecified without thyrotoxic crisis or storm; Z90.710 Acquired absence of both cervix and uterus; Z68.44 Body mass index [BMI] 60.0-69.9, adult; Z90.89 Acquired absence of other organs; Z98.890 Other specified postprocedural states; Z86.718 Personal history of other venous thrombosis and embolism; Z88.8 Allergy status to other drugs, medicaments and biological substances; Z79.82 Long term (current) use of aspirin; Z79.899 Other long term (current) drug therapy
CPT/HCPCS: 36415; 71045; 80053; 83605; 83735; 84145; 85008; 85025; 87040; 93005; 99285